=== PATIENT | female | born 1965 | race Caucasian/White ===

== ENCOUNTER 2019-08-28 05:32 | Inpatient (IN) | payer OTHER ==
[2019-08-28] MEDS ORDERED: ALBUTEROL 2.5 MG/3 ML NEB SOL ONE (05:43)
[2019-08-28] MEDS ORDERED: IPRATROPIUM BROM 0.5MG/2.5ML ONE (05:44)
[2019-08-28] MEDS ORDERED: LORazepam 2 MG/ML VIAL ONE (05:55)
[2019-08-28] MEDS ORDERED: Magnesium Sulfate 2gm IVPB 2 G/50 ML BAG IV ONE (05:55)
[2019-08-28 05:59] LABS: Arterial Blood Carboxyhemoglob 0.7 % (0-1.5); Blood Gas Oxyhemoglobin 93.9 % (94-97); Blood O2 Saturation 95.3 % (92-98.5)
[2019-08-28 06:02] LABS: Absolute Lymphocytes (CBC) 1.9 K/uL (0.7-4.9); Basophils % 0.9 % (0-1.3); Hematocrit 45.1 % (36.0-45.0); Lymphocytes % 13.8 % (15.3-44.8); MPV 7.3 fL (7.6-11.3); RBC Red Blood Cell Count 5.15 M/uL (3.86-4.86)
[2019-08-28 06:04] LABS: Protime INR 1.16
[2019-08-28 06:20] LABS: ALT/SGPT 32 U/L (12-78); AST/SGOT 22 U/L (15-37); Albumin 3.5 g/dL (3.4-5.0); Alkaline Phosphatase 99 U/L (45-117); BUN Blood Urea Nitrogen 9 mg/dL (7-18); Bicarbonate 29 mmol/L (21-32); Bilirubin Direct 0.2 mg/dL (0-0.2); Bilirubin Total 0.4 mg/dL (0.2-1.0); Glucose Level 138 mg/dL (74-106); Magnesium 1.5 mg/dL (1.8-2.4); NT PRO-BNP 134 pg/mL (<125); Potassium 3.6 mmol/L (3.5-5.1); Protein, Total 8.4 g/dL (6.4-8.2); Sodium Level 131 mmol/L (136-145); Troponin (Emerg Dept Use Only) < 0.02 ng/mL (0.0-0.045)
--- NOTE | 2019-08-28 06:34 | EDPHYS ---
Physician Documentation [facility] Name: Lianne Agustin Age: 54 yrs Sex: Female : 1965 Arrival Date: 08/28/2019 Time: 05:34 Bed 5 Private MD: ED Physician Juan Woodward HPI: 08/28 05:42 This 54 yrs old Female presents to ER via Unassigned with complaints of kdr Breathing Difficulty. 05:42 The patient has shortness of breath at rest, with light activity. Onset: The kdr symptoms/episode began/occurred gradually, 2 week(s) ago. Duration: The symptoms are continuous, and are steadily getting worse. The patient's shortness of breath is aggravated by coughing, exertion, light activity, is alleviated by nothing. Associated signs and symptoms: The patient has no apparent associated signs or symptoms, Pertinent positives: This patient does not have any pertinent positive signs or symptoms associated with shortness of breath. Severity of symptoms: At their worst the symptoms were incapacitating in the emergency department the symptoms are unchanged. The patient has experienced similar episodes in the past, but today's symptoms are worse, Generally worse and more difficulty breathing. The patient has not recently seen a physician. Historical: - Allergies: 05:35 No Known Allergies; jb4 - Home Meds: 05:35 Home Nebulizer [Active]; Albuterol inhaler [Active]; 2nd inhaler [Active]; jb4 - PMHx: 05:35 COPD; jb4 - PSHx: 05:35 Unable to obtain; jb4 - Immunization history:: Adult Immunizations unknown. - Social history:: Smoking status: unknown. - Ebola Screening: : No symptoms or risks identified at this time. ROS: 05:42 Constitutional: Negative for fever, chills, and weight loss, Eyes: Negative for injury, kdr pain, redness, and discharge, ENT: Negative for injury, pain, and discharge, Neck: Negative for injury, pain, and swelling, Cardiovascular: Negative for chest pain, palpitations, and edema, Abdomen/GI: Negative for abdominal pain, nausea, vomiting, diarrhea, and constipation, Back: Negative for injury and pain, : Negative for injury, bleeding, discharge, and swelling, MS/Extremity: Negative for injury and deformity, Skin: Negative for injury, rash, and discoloration, Neuro: Negative for headache, weakness, numbness, tingling, and seizure activity. Psych: Negative for depression, anxiety, suicide ideation, homicidal ideation, and hallucinations, Allergy/Immunology: Negative for hives, rash, and allergies, Endocrine: Negative for neck swelling, polydipsia, polyuria, polyphagia, and marked weight changes, Hematologic/Lymphatic: Negative for swollen nodes, abnormal bleeding, and unusual bruising. 05:42 Respiratory: Positive for dyspnea on exertion, shortness of breath, at rest. wheezing. Exam: 05:42 Constitutional: This is a well developed, well nourished patient who is awake, alert, kdr and significant distress. Head/Face: Normocephalic, atraumatic. Eyes: Pupils equal round and reactive to light, extra-ocular motions intact. Lids and lashes normal. Conjunctiva and sclera are non-icteric and not injected. Cornea within normal limits. Periorbital areas with no swelling, redness, or edema. Neck: Trachea midline, no thyromegaly or masses palpated, and no cervical lymphadenopathy. Supple, full range of motion without nuchal rigidity, or vertebral point tenderness. No Meningismus. Chest/axilla: Normal chest wall appearance and motion. Nontender with no deformity. No lesions are appreciated. Cardiovascular: Regular rate and rhythm with a normal S1 and S2. No gallops, murmurs, or rubs. Normal PMI, no JVD. No pulse deficits. Abdomen/GI: Soft, non-tender, with normal bowel sounds. No distension or tympany. No guarding or rebound. No evidence of tenderness throughout. Back: No spinal tenderness. No costovertebral tenderness. Full range of motion. Skin: Warm, dry with normal turgor. Normal color with no rashes, no lesions, and no evidence of cellulitis. MS/ Extremity: Pulses equal, no cyanosis. Neurovascular intact. Full, normal range of motion. Neuro: Awake and alert, GCS 15, oriented to person, place, time, and situation. Cranial nerves II-XII grossly intact. Motor strength 5/5 in all extremities. Sensory grossly intact. Cerebellar exam normal. Normal gait. Psych: Awake, alert, with orientation to person, place and time. Behavior, mood, and affect are within normal limits. 05:42 Respiratory: severe repiratory distress is noted, Respirations: labored breathing, that is severe, prolonged exhalation, pursed lip breathing, shallow respirations, that is moderate, tachypnea, that is mild. Vital Signs: 05:35 BP 202 / 113; Pulse 128; Resp 28; Temp 97.5(O); Pulse Ox 89% on R/A; Weight 52.16 kg jb4 (R); Height 5 ft. 4 in. (162.56 cm) (R); Pain 0/10; 06:00 BP 164 / 101; Pulse 126; Resp 22; Pulse Ox 97% on BiPAP; jb4 06:38 BP 148 / 103; Pulse 124; Resp 22; Pulse Ox 95% on BiPAP; jb4 07:00 BP 131 / 85; Pulse 117; Resp 22; Pulse Ox 97% on BiPAP; sv 08:28 BP 111 / 73; Pulse 108; Resp 19; Pulse Ox 96% on 40% BiPAP; tw2 05:35 Body Mass Index 19.74 (52.16 kg, 162.56 cm) jb4 08:28 16/8, rate 18 tw2 MDM: 05:42 Data reviewed: vital signs, nurses notes, lab test result(s), radiologic studies. kdr Counseling: I had a detailed discussion with the patient and/or guardian regarding: the historical points, exam findings, and any diagnostic results supporting the discharge/admit diagnosis, lab results, radiology results. 06:34 Patient medically screened. kdr 08/28 05:42 Order name: Basic Metabolic Panel; Complete Time: 06:44 kdr 08/28 05:42 Order name: CBC with Diff; Complete Time: 06:44 kdr 08/28 05:42 Order name: LFT's; Complete Time: 06:44 kdr 08/28 05:42 Order name: Magnesium; Complete Time: 06:44 kdr 08/28 05:42 Order name: NT PRO-BNP; Complete Time: 06:44 kdr 08/28 05:42 Order name: PT-INR; Complete Time: 06:44 kdr 08/28 05:42 Order name: Troponin (emerg Dept Use Only); Complete Time: 06:44 kdr 08/28 05:42 Order name: ABG kdr 08/28 06:41 Order name: Procalcitonin kdr 08/28 06:41 Order name: Lactate kdr 08/28 06:42 Order name: Blood Culture Adult (2) kdr 08/28 06:45 Order name: ABG Arterial Blood Gas EDMS 08/28 10:46 Order name: Urine Dipstick--Ancillary (enter results) ms 08/28 10:46 Order name: Urine --Ancillary (enter results) ms 08/28 05:42 Order name: BIPAP: With continuous neb kdr 08/28 05:42 Order name: XRAY Chest (1 view) kdr 08/28 05:42 Order name: EKG; Complete Time: 05:43 kdr 08/28 05:42 Order name: Cardiac monitoring; Complete Time: 06:00 kdr 08/28 05:42 Order name: EKG - Nurse/Tech; Complete Time: 06:00 kdr 08/28 05:42 Order name: IV Saline Lock; Complete Time: 06:00 kdr 08/28 05:42 Order name: Labs collected and sent; Complete Time: 06:00 kdr 08/28 11:03 Order name: Lactate EDMS 08/28 11:21 Order name: ABG Arterial Blood Gas EDMS 08/28 11:34 Order name: Urine --Ancillary EDMS 08/28 11:34 Order name: Urine Dipstick-Ancillary EDMS 08/28 05:42 Order name: O2 Per Protocol; Complete Time: 06:00 kdr 08/28 05:42 Order name: O2 Sat Monitoring; Complete Time: 06:00 kdr Administered Medications: 05:44 Drug: Albuterol - atroVENT (3:1) (2.5 mg - 0.5 mg) 3 ml Route: Nebulizer; jb4 06:25 Follow up: Response: No adverse reaction; Wheezing diminished jb4 05:57 Drug: Ativan 0.5 mg Route: IVP; Site: right wrist; jb4 06:24 Follow up: Response: No adverse reaction; Marked relief of symptoms jb4 05:59 Drug: Magnesium Sulfate 2 grams Route: IVPB; Infused Over: 2 hrs; Site: right wrist; jb4 08:00 Follow up: Response: No adverse reaction; IV Status: Completed infusion tw2 07:25 Drug: Rocephin - (cefTRIAXone) 1 grams {Note: IVP available only.} Route: IVPB; Infused tw2 Over: 5 mins; Site: right forearm; 07:30 Follow up: Response: No adverse reaction; IV Status: Completed infusion tw2 07:34 Drug: Zofran 4 mg Route: IVP; Site: right forearm; tw2 12:34 Follow up: Response: No adverse reaction tw2 Disposition: 08/28/19 06:34 Hospitalization ordered by Petey Clark for Inpatient Admission. Preliminary diagnosis is COPD Exacerbation and Right base pneumonia vs atelactasis. - Bed requested for Telemetry/MedSurg (Inpatient). - Status is Inpatient Admission. tw2 - Condition is Serious. - Problem is an acute exacerbation. - Symptoms have improved. UTI on Admission? No Signatures: Dispatcher [employer] EDMS Adela Jimenez RN RN aa1 Juan Woodward MD MD kdr Villarreal, Maria ms Smirch, Shelby, RN RN ss Leila Watts RN RN tw2 Teto Ogden RN RN jb4 Corrections: (The following items were deleted from the chart) 08:25 06:34 Hospitalization Ordered by Petey Clark for Inpatient Admission. Preliminary ss diagnosis is COPD Exacerbation and Right base pneumonia vs atelactasis. Bed requested for Telemetry/MedSurg (Inpatient). Status is Inpatient Admission. Condition is Serious. Problem is an acute exacerbation. Symptoms have improved. UTI on Admission? No. kdr 12:44 08:25 08/28/2019 06:34 Hospitalization Ordered by Petey Clark for Inpatient ms Admission. Preliminary diagnosis is COPD Exacerbation and Right base pneumonia vs atelactasis. Bed requested for [facility] ER HOLD. Status is Inpatient Admission. Condition is Serious. Problem is an acute exacerbation. Symptoms have improved. UTI on Admission? No. ss 13:32 12:44 08/28/2019 06:34 Hospitalization Ordered by Petey Clark for Inpatient tw2 Admission. Preliminary diagnosis is COPD Exacerbation and Right base pneumonia vs atelactasis. Bed requested for Telemetry/MedSurg (Inpatient). Status is Inpatient Admission. Condition is Serious. Problem is an acute exacerbation. Symptoms have improved. UTI on Admission? No. ms
--- NOTE | 2019-08-28 06:34 | ER ---
Nurse's Notes [facility] Name: Lianne Agustin Age: 54 yrs Sex: Female : 1965 Arrival Date: 08/28/2019 Time: 05:34 Bed 5 Private MD: Diagnosis: COPD Exacerbation and Right base pneumonia vs atelactasis Presentation: 08/28 05:35 Presenting complaint: EMS states: PT has had shortness of breath for the past 2 weeks. jb4 tonight her nebulizer treatments and inhalers are not helping. She has audible wheezes and labored breathing. heart rate of 120, b/p 180/100. She was given 125 mg of Solu-Medrol. and Duoneb 1:1 of Albuterol and Atrovent. 05:35 Transition of care: patient was not received from another setting of care. Onset of jb4 symptoms was August 14, 2019. Risk Assessment: Do you want to hurt yourself or someone else? Patient reports no desire to harm self or others. Initial Sepsis Screen: Does the patient meet any 2 criteria? RR > 20 per min. HR > 90 bpm. Yes Does the patient have a suspected source of infection? No. Patient's initial sepsis screen is negative. Care prior to arrival: Medication(s) given: Albuterol Neb x 1, Atrovent Neb x 1, 125 mg Solu-Medrol IV initiated. 22 GA, in the right forearm, Med neb given. Oxygen administered. via a nebulizer mask. 05:35 Method Of Arrival: EMS: [facility] 05:35 Acuity: ASPEN 2 jb4 Triage Assessment: 05:35 General: Appears distressed. Respiratory: Reports shortness of breath at rest air jb4 hunger labored breathing Onset: The symptoms/episode began/occurred gradually, the patient has severe shortness of breath. Historical: - Allergies: 05:35 No Known Allergies; jb4 - Home Meds: 05:35 Home Nebulizer [Active]; Albuterol inhaler [Active]; 2nd inhaler [Active]; jb4 - PMHx: 05:35 COPD; jb4 - PSHx: 05:35 Unable to obtain; jb4 - Immunization history:: Adult Immunizations unknown. - Social history:: Smoking status: unknown. - Ebola Screening: : No symptoms or risks identified at this time. Screenin:35 Abuse screen: Denies threats or abuse. Nutritional screening: No deficits noted. jb4 Tuberculosis screening: No symptoms or risk factors identified. Fall Risk Secondary diagnosis (15 points) IV access (20 points). Gait- Weak (10 pts.). Total Clarke Fall Scale indicates High Risk Score (45 or more points). Fall prevention measures have been instituted. Side Rails Up X 2 Placed Close to Nursing Station Frequent Obs/Assessments Occuring As available patient and family educated on Fall Prevention Program and Strategies. Assessment: 05:35 General: Appears distressed, uncomfortable, ill, Behavior is cooperative, anxious, jb4 restless. Pain: Denies pain. Neuro: Level of Consciousness is awake, alert, obeys commands, Oriented to person, place, time, situation. Cardiovascular: Patient's skin is warm and dry. Rhythm is sinus tachycardia. Respiratory: Airway is patent Respiratory effort is even, labored, using tripod position, Respiratory pattern is symmetrical, tachypnea Breath sounds with wheezes bilaterally. GI: No signs and/or symptoms were reported involving the gastrointestinal system. : No signs and/or symptoms were reported regarding the genitourinary system. EENT: No signs and/or symptoms were reported regarding the EENT system. Derm: Skin is intact, Skin is pink, warm \T\ dry. Musculoskeletal: Circulation, motion, and sensation intact. Range of motion: intact in all extremities. 06:00 Reassessment: Pt's respirations remain labored. Pt verbalized feeling less anxious and jb4 starting to feel better. Is currently on bi-pap. Pt is no longer in the tripod position. Is tolerating bi-pap. Pt remains sinus tach. 06:38 Reassessment: No changes from previously documented assessment. Patient and/or family jb4 updated on plan of care and expected duration. Pain level reassessed. 08:37 Reassessment: Left voicemail for Dr Kiser regarding admission. sv 08:43 Reassessment: Dr Kiser called back and asked if we could get pt downgraded to a floor sv bed, he stated that he would be coming down here to assess the pt before making that decision. Vital Signs: 05:35 BP 202 / 113; Pulse 128; Resp 28; Temp 97.5(O); Pulse Ox 89% on R/A; Weight 52.16 kg jb4 (R); Height 5 ft. 4 in. (162.56 cm) (R); Pain 0/10; 06:00 BP 164 / 101; Pulse 126; Resp 22; Pulse Ox 97% on BiPAP; jb4 06:38 BP 148 / 103; Pulse 124; Resp 22; Pulse Ox 95% on BiPAP; jb4 07:00 BP 131 / 85; Pulse 117; Resp 22; Pulse Ox 97% on BiPAP; sv 08:28 BP 111 / 73; Pulse 108; Resp 19; Pulse Ox 96% on 40% BiPAP; tw2 05:35 Body Mass Index 19.74 (52.16 kg, 162.56 cm) jb4 08:28 16/8, rate 18 tw2 ED Course: 05:34 Patient arrived in ED. ds1 05:35 Arm band placed on right wrist. jb4 05:35 Patient has correct armband on for positive identification. Placed in gown. Bed in low jb4 position. Call light in reach. Side rails up X2. pvc monitor on. Pulse ox on. NIBP on. 05:40 Initial lab(s) drawn, by me, sent to lab. Maintain EMS IV. Dressing intact. Good blood jb4 return noted. Site clean \T\ dry. Gauge \T\ site: 22g right wrist.. 05:41 Juan Woodward MD is Attending Physician. kdr 05:43 Teto Ogden, RN is Primary Nurse. jb4 06:05 Triage completed. jb4 06:10 XRAY Chest (1 view) In Process Unspecified. EDMS 06:31 Petye Clark is Hospitalizing Provider. kdr 07:05 Primary Nurse role handed off by Teto Ogden, RN tw2 07:05 Leila Watts, RN is Primary Nurse. tw2 08:30 No provider procedures requiring assistance completed. Patient admitted, IV remains in tw2 place. 12:50 Awaiting: unable to give report at this time, no answer. tw2 Administered Medications: 05:44 Drug: Albuterol - atroVENT (3:1) (2.5 mg - 0.5 mg) 3 ml Route: Nebulizer; jb4 06:25 Follow up: Response: No adverse reaction; Wheezing diminished jb4 05:57 Drug: Ativan 0.5 mg Route: IVP; Site: right wrist; jb4 06:24 Follow up: Response: No adverse reaction; Marked relief of symptoms jb4 05:59 Drug: Magnesium Sulfate 2 grams Route: IVPB; Infused Over: 2 hrs; Site: right wrist; jb4 08:00 Follow up: Response: No adverse reaction; IV Status: Completed infusion tw2 07:25 Drug: Rocephin - (cefTRIAXone) 1 grams {Note: IVP available only.} Route: IVPB; Infused tw2 Over: 5 mins; Site: right forearm; 07:30 Follow up: Response: No adverse reaction; IV Status: Completed infusion tw2 07:34 Drug: Zofran 4 mg Route: IVP; Site: right forearm; tw2 12:34 Follow up: Response: No adverse reaction tw2 Intake: 02:00 IV: 1000ml; Total: 1000ml. jb4 Outcome: 06:34 Decision to Hospitalize by Provider. kdr 11:02 Admitted to ER Hold. Please see [facility] for further documentation. tw2 11:02 Condition: stable 11:02 Instructed on the need for admit. 13:32 Patient left the ED. tw2 Signatures: Dispatcher [employer] EDMS Rhiannon Andrea RN RN sv Juan Woodward MD MD kdr Lisa Hagen ds1 Leila Watts RN RN tw2 Teto Ogden RN RN jb4 Corrections: (The following items were deleted from the chart) 08:29 08:28 BP 111 / 73; Pulse 108bpm; Resp 19bpm; Pulse Ox 96% BiPAP; sv tw2 08:32 05:40 Maintain EMS IV. Dressing intact. Good blood return noted. Site clean \T\ dry. tw2 Gauge \T\ site: 22g left wrist.. jb4
[2019-08-28 06:45] LABS: Arterial Blood Carboxyhemoglob 0.7 % (0-1.5); Blood Gas Oxyhemoglobin 93.3 % (94-97); Blood O2 Saturation 94.8 % (92-98.5)
--- NOTE | 2019-08-28 06:59 | P.HP ---
Certification for Inpatient Patient admitted to: Inpatient With expected LOS: >2 Midnights Practitioner: I am a practitioner with admitting privileges, knowledge of patient current condition, hospital course, and medical plan of care. Services: Services provided to patient in accordance with Admission requirements found in Title 42 Section 412.3 of the Code of Federal Regulations Patient History Date of Service: 08/28/19 Reason for admission: Shortness of breath History of Present Illness: 54 Year old woman with a history of COPD presented to the emergency department with a complaint of progressive shortness of breath of 2 weeks duration. She reports cough productive of whitish sputum. Patient denied any chest pain. She also denied any fever. She was hypoxic in the emergency department. She was placed on oxygen and given bronchodilators with some improvement. Arterial blood gas revealed acidosis and moderate CO2 retention. Patient was then placed on BiPAP therapy in the ED. Chest x-ray demonstrates subtle opacities in the right lower lobe suggestive of pneumonia. She has leukocytosis and tachycardic and meet criteria for sepsis. Patient is admitted for further management. - Past Medical/Surgical History Diabetic: No -: COPD - Family History Father -: Heart disease - Social History Smoking Status: Former smoker Alcohol use: Yes CD- Drugs: No Review of Systems Other: General: No fever, no malaise, no unintentional weight loss. Eyes: No eye discharge, CVS: No chest pain, no palpitation, no lightheadedness. GI: No abdominal pain, no nausea no vomit, no constipation, no diarrhea. Genitourinary: No dysuria, no urinary frequency, no incontinence, no hematuria. Musculoskeletal: No joint pains, or joint swelling, no gait instability. Neurology: No headache, no asymmetric, weakness, no problem with swallowing. Except as documented, all other systems reviewed and negative. Physical Examination - Physical Exam General: Alert, Oriented x3, Mild distress HEENT: Mucous membr. moist/pink, Sclerae nonicteric Neck: Supple, JVD not distended Respiratory: Diminished (Diffuse diminished breath sounds), Expiratory wheezes ( Mild scattered wheezes) Cardiovascular: No edema, Normal S1 S2, Other (Tachycardia) Gastrointestinal: Normal bowel sounds, Soft and benign, Non-distended, No tenderness Musculoskeletal: No swelling, No erythema Integumentary: No rashes, No erythema Neurological: Normal speech, Normal strength at 5/5 x4 extr - Studies Laboratory Data (last 24 hrs) 08/28/19 05:45: PT 13.6 H, INR 1.16 08/28/19 05:45: WBC 13.8 H, Hgb 15.4 H, Hct 45.1 H, Plt Count 320 08/28/19 05:45: Sodium 131 L, Potassium 3.6, BUN 9, Creatinine 0.58, Glucose 138 H, Magnesium 1.5 L, Total Bilirubin 0.4, AST 22, ALT 32, Alkaline Phosphatase 99 Assessment and Plan - Problems (Diagnosis) (1) Acute respiratory failure with hypoxia and hypercapnia Current Visit: Yes Status: Acute (2) COPD exacerbation Current Visit: Yes Status: Acute (3) Sepsis Current Visit: Yes Status: Acute (4) Hyponatremia Current Visit: Yes Status: Acute - Plan Admit patient to the ICU Schedule DuoNeb IV Solu-Medrol IV Rocephin and Zithromax IV hydration with normal saline. Normal saline also to correct hyponatremia Sepsis protocol. Follow blood cultures. Check urinalysis. BiPAP therapy Consult to respiratory Consult to pulmonary. - Advance Directives Does patient have a Living Will: No Does patient have a Durable POA for Healthcare: No
[2019-08-28] MEDS ORDERED: CEFTRIAXONE/SWI 1gm 1 GM/10 ML SYR ONE (07:07)
[2019-08-28] MEDS ORDERED: ONDANSETRON 4 MG/2 ML VIAL ONE (07:35)
--- NOTE | 2019-08-28 08:04 | RAD REPORT ---
EXAM DESCRIPTION: RAD - Chest Single View - 08/28/2019 6:09 am CLINICAL HISTORY: COPD, dyspnea COMPARISON: None. TECHNIQUE: AP portable chest image was obtained 0600 hours . FINDINGS: Low lung volumes seen. No dense consolidation. There is hazy opacification in the medial r ight lung base partially obscuring the right heart border. Cardiac lead overlies this portion of the chest as well limiting detail. Failure or volume overload are doubtful. No acute left lung field find ing suspected. Heart and vasculature are normal. No measurable pleural effusion and no pneumothorax. No acute bony abnormality seen. No acute aortic findings suspected. IMPRESSION: Hazy right base opacification is probably artifact. However, early right middle lobe pne umonia cannot be excluded.
[2019-08-28] MEDS: ALBUTEROL 2.5 MG/3 ML NEB SOL NEB SCH ×3 (09:04→19:35)
[2019-08-28] MEDS ORDERED: ACETAMINOPHEN 500 MG TAB PO PRN (09:04)
[2019-08-28] MEDS ORDERED: ONDANSETRON 4 MG/2 ML VIAL IV PRN (09:04)
[2019-08-28] MEDS ORDERED: CEFTRIAXONE 1 GM/NS 50 ML 1 GM/50 ML BAG IV SCH (09:04)
[2019-08-28] MEDS: IPRATROPIUM BROM 0.5MG/2.5ML NEB SCH ×3 (09:04→19:35)
[2019-08-28 09:16] VITALS: BMI 19.7
[2019-08-28] MEDS: AZITHROMYCIN IV 500 MG in NA CHLORIDE 0.9% 250 ML IVPB SCH (10:40)
[2019-08-28] MEDS: NA CHLORIDE 0.9% 1,000 ML IV SCH ×2 (10:47→22:03)
[2019-08-28] MEDS: ENOXAPARIN 40 MG/0.4 ML SQ SCH (10:54)
[2019-08-28 11:19] LABS: Arterial Blood Carboxyhemoglob 0.4 % (0-1.5); Blood Gas Oxyhemoglobin 95.5 % (94-97); Blood O2 Saturation 96.8 % (92-98.5)
[2019-08-28 11:34] LABS: Urine Blood TRACE (NEG); Urine Glucose NEGATIVE (NEG); Urine Protein 3+ (NEG); Urine pH 7.5 (5.0-7.0)
[2019-08-28] MEDS: METHYLPREDNISOLONE 40 MG INJ IV SCH ×3 (12:00→23:51)
[2019-08-28] MEDS ORDERED: POTASSIUM CL SA 10 MEQ TAB PO ONE (13:37)
[2019-08-28] MEDS ORDERED: INFLUENZA VACCINE (for 3y+) 0.5 ML DOSE IMVAC ONE (14:00)
[2019-08-28] MEDS ORDERED: MAGNESIUM SULFATE 1 gm IVPB 1 GM/100 ML BAG IV ONE (16:20)
--- NOTE | 2019-08-28 17:29 | PN ---
Date of Progress Note: 08/28/2019 Subjective: Patient is seen and examined. Chart reviewed and case discussed with RN. Patient still in some mild distress, respiratory distress. Medications: List reviewed. Physical Examination: Vital Signs: Heart rate is 110, blood pressure 141/85, respirations 19, O2 of 98% on BiPAP 40% FiO2. General: Awake, alert, oriented x3, some mild distress, appears older than stated age, ill-appearin g female, frail, cachectic. CV: S1, S2. Sinus tachycardia. Peripheral pulses present. Respiratory: Diminished breath sounds. Patient is tachypneic with use of accessory muscles. Gastroi ntestinal: Abdomen is soft, nontender, nondistended. Positive bowel sounds. Extremities: No clubbing, cyanosis, or edema. Neurologic: Nonfocal. Laboratory Data: Lactate 1.1. Procalcitonin 0.05. ABG shows pH 7.32, pCO2 of 53.1, pO2 of 96, bica rb is 26. Assessment: A 54-year-old female with: 1.Acute respiratory failure with hypoxia, currently requiring BiPAP. We will continue on BiPAP. AB G shows improvement. Hypercapnia is improving. Pulmonology has been consulted. 2.Acute chronic obstructive pulmonary disease exacerbation. We will continue with nebulizer treatme nts and steroids. Currently on supplemental oxygen. 3.Sepsis. Patient is tachycardic, elevated white blood cell count. Source of infection is pneumoni a. 4.Right middle lobe pneumonia, possible gram-negative or aspiration type pneumonia. We will continu e with IV antibiotics and follow up on cultures. 5.Hyponatremia. We will replace and monitor. 6.Hypomagnesemia. We will replace and monitor. Plan: We will downgrade to [facility] floor. Patient is no longer that acidotic. Her hypercapnia is i mproved. It should be stable for the floor. SA/MODL Voice ID: [id number] Report ID: [id number]
[2019-08-28] MEDS ORDERED: ALPRAZOLAM 0.25 MG TABLET PO ONE (18:25)
[2019-08-28] MEDS ORDERED: MAGNES/ALUMIN/SIMET 30ML UCUP PO PRN (23:11)
[2019-08-28] MEDS: ZOLPIDEM TARTRATE 5 MG TABLET PO PRN (23:51)
[2019-08-28] MEDS: GUAIFENESIN/CODEINE 5ML UCUP PO PRN (23:51)
[2019-08-29] MEDS: ALBUTEROL 2.5 MG/3 ML NEB SOL NEB SCH ×4 (01:35→20:20)
[2019-08-29] MEDS: IPRATROPIUM BROM 0.5MG/2.5ML NEB SCH ×4 (01:35→20:20)
[2019-08-29] MEDS: METHYLPREDNISOLONE 40 MG INJ IV SCH (05:12)
[2019-08-29] MEDS: PANTOPRAZOLE 40MG TABLET PO SCH (05:12)
[2019-08-29 06:18] LABS: Absolute Lymphocytes (CBC) 0.8 K/uL (0.7-4.9); Basophils % 0.1 % (0-1.3); Hematocrit 37.8 % (36.0-45.0); Lymphocytes % 5.8 % (15.3-44.8); MPV 7.5 fL (7.6-11.3); RBC Red Blood Cell Count 4.33 M/uL (3.86-4.86)
[2019-08-29 06:33] LABS: ALT/SGPT 23 U/L (12-78); AST/SGOT 11 U/L (15-37); Albumin 2.8 g/dL (3.4-5.0); Alkaline Phosphatase 79 U/L (45-117); BUN Blood Urea Nitrogen 10 mg/dL (7-18); Bicarbonate 26 mmol/L (21-32); Bilirubin Total 0.3 mg/dL (0.2-1.0); Glucose Level 137 mg/dL (74-106); Magnesium 2.1 mg/dL (1.8-2.4); Phosphorus 1.8 mg/dL (2.5-4.9); Potassium 3.7 mmol/L (3.5-5.1); Protein, Total 6.9 g/dL (6.4-8.2); Sodium Level 135 mmol/L (136-145); Thyroid Stimulating Hormone 0.328 uIU/mL (0.360-3.740)
--- NOTE | 2019-08-29 06:36 | EKG ---
Test Date: 2019-08-28 Test Time: 05:54:58 Face Burler: CHANI MEASUREMENT RESULTS: Intervals: Rate: 125 ND: 138 QRSD: 104 QT: 314 QTc: 453 [place]: P: 93 ND: 138 QRS: 76 T: 70 INTERPRETIVE STATEMENTS: Sinus tachycardia Right atrial enlargement Right bundle branch block Abnormal ECG No previous ECG available for comparison Electronically Signed On 08-29-19 06:35:56 [employer] by Austin Jerome
[2019-08-29] MEDS: NA CHLORIDE 0.9% 1,000 ML IV SCH (06:50)
[2019-08-29] MEDS: ENOXAPARIN 40 MG/0.4 ML SQ SCH (08:15)
[2019-08-29] MEDS: POTASS/SODIUM PHOSPHATE 1 PKT POWD.PACK PO SCH ×3 (08:16→11:44)
[2019-08-29] MEDS: AZITHROMYCIN IV 500 MG in NA CHLORIDE 0.9% 250 ML IVPB SCH (08:16)
[2019-08-29 08:39] LABS: Blood Morphology Comment NOT SEEN (NOT SEEN); Platelet Estimate ADEQ
[2019-08-29] MEDS ORDERED: POTASSIUM CL SA 10 MEQ TAB PO ONE (09:00)
[2019-08-29] MEDS ORDERED: CEFTRIAXONE/SWI 1gm 1 GM/10 ML SYR IVP SCH (09:00)
[2019-08-29] MEDS: LORAZEPAM 0.5 MG TABLET PO PRN ×2 (09:51→18:37)
--- NOTE | 2019-08-29 10:47 | P.CNS ---
Date of Consult: 08/29/19 Reason for Consult: COPD exacerbation Chief Complaint: Shortness of breath History of Present Illness: Patient is 54 years of age heavy 2 pack-a-day smoker admitted with shortness of breath cough congestion dysphonia for several weeks does not have a regular physician she has been taking her mom's nebulizers and albuterol at home and last year regular physician does not take any medication as at this productive cough feeling better no other complaints Allergies No Known Allergies Allergy (Verified 08/28/19 08:21) Home Medications: NK [No Home Meds] 08/28/19 - Past Medical/Surgical History Diabetic: No -: COPD -: Back - Family History Father Medical History: Heart disease - Social History Smoking Status: Unknown if ever smoked Alcohol use: No CD- Drugs: No Place of Residence: Home Review of Systems General: Weakness Respiratory: Cough, Shortness of Breath Physical Examination Temp Pulse Resp BP Pulse Ox 97.3 F 90 20 149/80 H 97 08/29/19 08:00 08/29/19 08:00 08/29/19 08:00 08/29/19 08:00 08/29/19 08:00 General: Alert, In no apparent distress Neck: Supple Respiratory: Expiratory wheezes Cardiovascular: No edema, Regular rate/rhythm, Normal S1 S2 Gastrointestinal: Normal bowel sounds, Soft and benign - Problems (1) COPD exacerbation Current Visit: Yes Status: Acute Plan: Patient is 54 years of age admitted with COPD exacerbation patient was hypoxic hypercapnic on admission white count mildly elevated may have a right middle lobe infiltrate I have repeated a PA lateral chest x-ray change to p.o. levofloxacin and prednisone Dc IV antibiotics concerned about her dysphonia blood cultures negative sputum cultures pending check room air pulse ox patient has been console not to smoke
[2019-08-29] MEDS: levoFLOXacin 500 MG TAB PO SCH (11:44)
--- NOTE | 2019-08-29 16:27 | PN ---
Date of Progress Note: 08/29/2019 Subjective: Patient is seen and examined. Chart reviewed and case discussed with RN and Dr. Lisa. Patient is doing significantly better. Daughter at the bedside. Treatment plan explained, all questions answered. Medications: List reviewed. Physical Examination: Vital Signs: Temperature 97.3, heart rate 90, blood pressure 149/80, respirations 20, O2 97% on 2.5 L via nasal cannula. GENERAL: Awake, alert, oriented x3, ill-appearing, frail, cachectic female; appears older than stated age. CVS: S1, S2. Regular rate and rhythm. Peripheral pulses present. Respiratory: Diminished breath sounds, wheezing significantly improved. Gastrointestinal: Abdomen is soft, nontender, nondistended. Positive bowel sounds. Extremities: No clubbing, cyanosis, or edema. Neurologic: Nonfocal. Laboratory Data: Sodium 135, potassium 3.7, chloride 106, CO2 of 26, BUN 10, creatinine 0.53, glucose 137, calcium 8.5, phosphorus 1.8, magnesium 2.1, albumin 2.8, TSH 0.328. WBC 13.9, H and H of 12.8 and 37.8, platelets 272, neutrophils 90%. Blood cultures, no growth to date. Sputum culture pending. Assessment: A 54-year-old female with: 1. Acute respiratory failure with hypoxia and hypercapnia, now off BiPAP. Still using BiPAP at night, significantly improved, now on nasal cannula. Appreciate pulmonology input secondary to chronic obstructive pulmonary disease. 2. Acute on chronic obstructive pulmonary disease exacerbation. Continue with nebulizer treatments and steroids. Switch to prednisone. Currently, still on 2.5 L. We will check room air saturations. 3. Sepsis secondary to pneumonia, improving. 4. Right middle lobe pneumonia, possible gram-negative or aspiration type. We will continue with IV antibiotics. Follow up on culture results. Negative to date. Sputum culture still pending. 5. Hyponatremia, corrected. 6. Hypomagnesemia, corrected. We will continue to monitor. 7. Hypophosphatemia. We will replace and monitor. 8. Dysphonia, ENT evaluation. No ENT available till tomorrow. Patient has a strong history of smoking 2 packs per day for a long time, has risk for laryngeal cancer. 9. Nicotine dependence with cigarette smoking. Patient is smoking 2 packs per day since she was very young. Has been counseled. 10. Deep venous thrombosis prophylaxis, on Lovenox. Plan: Wean off O2. Switch to oral steroids. Social Work consult. Patient will need a PCP set up as an outpatient. JACKSON Voice ID: [id number] Report ID: [id number] MTDD
--- NOTE | 2019-08-29 19:11 | RAD REPORT ---
EXAM DESCRIPTION: RAD - Chest Pa And Lat (2 Views) - 08/29/2019 7:04 pm CLINICAL HISTORY: COPD exacerbation abnormal chest x-ray Chest pain. COMPARISON: Chest Single View dated 08/28/2019 FINDINGS: Linear opacities are present in the right lung base which may represent subsegmental atele ctasis or a small infiltrate. The lungs are emphysematous. The heart is normal in size. No displaced fractures.
[2019-08-29] MEDS ORDERED: MELATONIN 5 MG TABLET PO SCH (21:00)
[2019-08-29] MEDS: predniSONE 20 MG TAB PO SCH (21:11)
[2019-08-29] MEDS: ZOLPIDEM TARTRATE 5 MG TABLET PO PRN (21:11)
[2019-08-30] MEDS: ALBUTEROL 2.5 MG/3 ML NEB SOL NEB SCH ×2 (01:45→07:30)
[2019-08-30] MEDS: IPRATROPIUM BROM 0.5MG/2.5ML NEB SCH ×2 (01:45→07:30)
[2019-08-30] MEDS: LORAZEPAM 0.5 MG TABLET PO PRN (03:26)
[2019-08-30 04:26] VITALS: TEMP 97.7
[2019-08-30 04:36] LABS: BUN Blood Urea Nitrogen 11 mg/dL (7-18); Bicarbonate 22 mmol/L (21-32); Glucose Level 150 mg/dL (74-106); Potassium 4.1 mmol/L (3.5-5.1); Sodium Level 134 mmol/L (136-145)
--- NOTE | 2019-08-30 05:31 | EKG ---
Test Date: 2019-08-28 Test Time: 06:12:10 Silhouette Artist: CHANI MEASUREMENT RESULTS: Intervals: Rate: 127 ND: 138 QRSD: 112 QT: 318 QTc: 462 Irons: P: 83 ND: 138 QRS: 92 T: 61 INTERPRETIVE STATEMENTS: Sinus tachycardia Right atrial enlargement Pulmonary disease pattern Right bundle branch block Abnormal ECG Compared to ECG 08/28/2019 05:54:58 No significant changes Electronically Signed On 08-30-19 05:30:51 PAY CLERK by Austin Jerome
[2019-08-30] MEDS: PANTOPRAZOLE 40MG TABLET PO SCH (06:02)
[2019-08-30] MEDS: ENOXAPARIN 40 MG/0.4 ML SQ SCH (07:48)
[2019-08-30] MEDS: predniSONE 20 MG TAB PO SCH (07:48)
[2019-08-30] MEDS: levoFLOXacin 500 MG TAB PO SCH (07:48)
[2019-08-30] MEDS: GUAIFENESIN/CODEINE 5ML UCUP PO PRN (08:54)
[2019-08-30 10:37] VITALS: BP 148/85
[2019-08-30 12:00] VITALS: O2SAT 95
--- NOTE | 2019-08-31 01:29 | DS ---
Date of Discharge: 08/30/2019 Consultants: 1.Dr. Lisa with Pulmonology. 2.Dr. Mathew with ENT. Admitting Diagnoses: 1.Acute respiratory failure with hypoxia and hypercapnia. 2.Acute chronic obstructive pulmonary disease exacerbation. 3.Sepsis. 4.Pneumonia. 5.Hyponatremia. Discharge Diagnoses: 1.Acute respiratory failure with hypoxia and hypercapnia, resolved. 2.Acute chronic obstructive pulmonary disease exacerbation, improved. 3.Sepsis secondary to pneumonia, on Levaquin. 4.Right middle lobe pneumonia, improving. 5.Hyponatremia, corrected. 6.Hypomagnesemia, corrected. 7.Hypophosphatemia, replaced. 8.Dysphonia, outpatient ENT evaluation per Dr. Mathew. 9.Nicotine dependence with cigarette smoking, continuous, uncomplicated, counseled. Hospital Course: Patient is a 54-year-old female with past medical history of COPD, who has been usi ng her mother's nebulizer treatments, who continues to smoke, has been smoking 2 packs per d ay since she was a teenager, comes in with difficulty breathing. She was found to have respiratory f ailure. She was acidotic and her pCO2 was 70. The patient was placed on BiPAP. Subsequent ABGs did show improvement. She was also found to have a pneumonia on the right lobe in the base and was star gracia on antibiotics. Cultures were obtained, which did not show any growth to date including sputum c ultures and blood cultures. The patient's symptoms improved, she was able to be weaned off BiPAP. S he was still requiring supplemental oxygen, however, was slowly weaned off. Dr. Lisa with Pulmon ology was consulted and he agreed with the treatment. Patient was then switched over to oral antibio tics and steroids. Her condition was significantly improved. She was weaned off O2. She was able t o ambulate without difficulty. Concerning symptom was her dysphonia due to her risk factors includin g cigarette smoking for at least 45-noyn-nrbm history. She is at risk for laryngeal cancer. This dy sphonia has been ongoing for the past year. Symptoms never really go away, however, did improve slig htly and then come back. Patient did report some pink frothy sputum during the hospitalization. Dr. Mathew, ENT on-call was consulted. She recommended outpatient followup with laryngoscopy in [facility] on Thursday 8:00 a.m. The patient was made aware of the appointment. Face sheet was faxed over to Dr. Mathew's office. She recommended outpatient followup as she is unable to have the scope don e inpatient. Patient was then cleared for discharge. She was sent home in a stable condition. Activity: As tolerated. Medications: As per medication reconciliation list. Followup: Follow up with primary care physician in 2-3 days. Follow up with military pilot, Dr. Kristine lares in 2 weeks. Follow up with Dr. Mathew, ENT on , 09/02/2019 8:00 a.m. Return to ER for worsening condition. Diet: Regular. Activity: As tolerated. Physical Examination: General: Awake, alert, and oriented x3. No acute distress. CV: S1, S2. Respiratory: Slightly diminished breath sounds at the bases. No wheezing or stridor. Gastrointestinal: Abdomen is soft, nontender, nondistended. Positive bowel sounds. Extremities: No clubbing, cyanosis, or edema. Neurologic: Nonfocal. Total time spent discharging the patient was 38 minutes. SA/MODL Voice ID: [id number] Report ID: [id number]
--- NOTE | 2019-09-02 21:41 | P.CNS ---
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 She has approximately 1 year history of dysphonia. We discussed inpatient vs outpatient consultation. Given the pending discharge and better visualization of laryngoscopy in the out- patient clinic with ability to record the exam and magnify the images, I feel outpatient evaluation is best for this patient. She can call the office and will be scheduled for Sep 02 at 8AM for evaluation.
== END 2019-08-30 12:24 | disposition home or self-care (01) | DRG 871 ==
LOC: ER 05:32 → ERHOLD 07:07 → 4TH 13:02
PROVIDERS: ADMIT Internal Medicine; ATTEND Internal Medicine
DX: A41.9 Sepsis, unspecified organism (principal); J96.02 Acute respiratory failure with hypercapnia; J18.9 Pneumonia, unspecified organism; J96.01 Acute respiratory failure with hypoxia; J44.0 Chronic obstructive pulmonary disease with (acute) lower respiratory infection; J44.1 Chronic obstructive pulmonary disease with (acute) exacerbation; E87.1 Hypo-osmolality and hyponatremia; E83.42 Hypomagnesemia; E83.39 Other disorders of phosphorus metabolism; R49.0 Dysphonia; F17.210 Nicotine dependence, cigarettes, uncomplicated
CPT/HCPCS: 36415; 71045; 71046; 80048; 80053; 80076; 81003; 81025; 82805; 83605; 83735; 83880; 84100; 84145; 84443; 84484; 85025; 85610; 87040; 87070; 87205; 93005; 94640; 94660; 94760; 96365; 96366; 96375; 99285; J0456; J0696; J1650; J2405; J2920; J3475; J7030; J7512

== ENCOUNTER 2019-09-02 09:15 | Inpatient (IN) | payer OTHER, SELFPAY ==
[2019-09-02] MEDS ORDERED: LEVALBUTEROL 1.25 MG/3 ML NEB ONE ×2 (09:18→11:32)
[2019-09-02] MEDS ORDERED: NA CHLORIDE 0.9% 0 ML ONE (09:19)
[2019-09-02] MEDS ORDERED: MAGNESIUM SULFATE 1 gm IVPB 1 GM/100 ML BAG IV ONE (09:19)
[2019-09-02 09:35] LABS: Arterial Blood Carboxyhemoglob 0.2 % (0-1.5); Blood Gas Oxyhemoglobin 97.5 % (94-97); Blood O2 Saturation 98.6 % (92-98.5)
[2019-09-02 09:39] LABS: Absolute Lymphocytes (CBC) 5.7 K/uL (0.7-4.9); Basophils % 0.3 % (0-1.3); Hematocrit 48.2 % (36.0-45.0); Lymphocytes % 23.5 % (15.3-44.8); RBC Red Blood Cell Count 5.48 M/uL (3.86-4.86)
[2019-09-02 10:01] LABS: BUN Blood Urea Nitrogen 16 mg/dL (7-18); Bicarbonate 25 mmol/L (21-32); Glucose Level 169 mg/dL (74-106); NT PRO-BNP 137 pg/mL (<125); Potassium 3.9 mmol/L (3.5-5.1); Sodium Level 128 mmol/L (136-145); Troponin (Emerg Dept Use Only) < 0.02 ng/mL (0.0-0.045)
[2019-09-02] MEDS ORDERED: NA CHLORIDE 0.9% 1,000 ML ONE (10:30)
--- NOTE | 2019-09-02 10:37 | EDPHYS ---
Physician Documentation [facility] Name: Lianne Agustin Age: 54 yrs Sex: Female : 1965 Arrival Date: 09/02/2019 Time: 09:12 Bed 3 Private MD: ED Physician Chan Mccarty HPI: 09/02 09:14 This 54 yrs old Female presents to ER via EMS with complaints of Breathing rn Difficulty. 09:14 The patient has shortness of breath at rest, with light activity. Onset: The rn symptoms/episode began/occurred at an unknown time. The patient's shortness of breath is aggravated by light activity, talking. Severity of symptoms: At their worst the symptoms were severe in the emergency department the symptoms have improved. The patient has experienced similar episodes in the past. Per EMS, daughter states recently admitted for pneumonia, discharged, called 911 for difficulty breathing, no feve,r no pain, + severe respiratory distress, placed on cpap and given steroids and neb, with some improvement, has never been intubated. . Historical: - Allergies: 09:29 No Known Allergies; sv - PMHx: 09:29 COPD; sv - PSHx: 09:48 Back; sv - Immunization history:: Adult Immunizations up to date. - Ebola Screening: : No symptoms or risks identified at this time. - Social history:: Smoking status: unknown. - Hospitalizations: : The patient was recently seen at [facility]. - History obtained from: EMS. - Unable to obtain history due to: patient distress. ROS: 09:14 Constitutional: Negative for fever, chills, and weight loss, Eyes: Negative for injury, rn pain, redness, and discharge, Cardiovascular: Negative for chest pain, palpitations, and edema, Respiratory: + sob Abdomen/GI: Negative for abdominal pain, nausea, vomiting, diarrhea, and constipation, MS/Extremity: Negative for injury and deformity, Skin: Negative for injury, rash, and discoloration, Neuro: + weakness Exam: 09:14 Constitutional: Thin female, moderate respiratory distress, on CPAP. Head/Face: rn Normocephalic, atraumatic. ENT: dry MM, no stridor, no swelling Cardiovascular: Tachycardic, regular Respiratory: + moderate tachypnea, speaking 1-2 word sentences, + poor inspiratory air flow Abdomen/GI: soft, non-tender MS/ Extremity: Pulses equal, no cyanosis. Neurovascular intact. Full, normal range of motion. Equal circumference. Neuro: Awake and alert, GCS 15, oriented to person, place, time, and situation. Cranial nerves II-XII grossly intact. Motor strength 5/5 in all extremities. Sensory grossly intact. Cerebellar exam normal. 09:50 ECG was reviewed by the Attending Physician. rn Vital Signs: 09:14 BP 162 / 133; Pulse 124; Resp 40; Temp 98; Pulse Ox 91% on BiPAP; Pain 0/10; sv 09:49 BP 169 / 97; Pulse 117; Resp 19; Pulse Ox 96% on 70% BiPAP; sv 09:59 Weight 52 kg; Height 5 ft. 4 in. (162.56 cm); sv 10:49 BP 142 / 95; Pulse 110; Resp 20; Pulse Ox 100% on 70% BiPAP; sv 11:26 Pulse 118; Resp 26; Pulse Ox 94% on 70% BiPAP; sv 11:50 BP 191 / 117; Pulse 121; Resp 21 A; Pulse Ox 93% on BiPAP; ss 11:57 BP 193 / 96; Pulse 122; Resp 20; Pulse Ox 98% on BVM; ss 12:03 BP 136 / 83; Pulse 113; Pulse Ox 98% on ETT vent; ss 12:34 BP 60 / 46; Pulse 111; Resp 22; Pulse Ox 95% on ETT vent; sv 12:45 BP 72 / 48; Pulse 105; Resp 22; Pulse Ox 95% on ETT vent; sv 12:50 BP 87 / 55; Pulse 104; Resp 22; Pulse Ox 95% on ETT vent; sv 12:55 BP 94 / 56; Pulse 102; Resp 22; Pulse Ox 96% ; sv 13:00 BP 103 / 59; Pulse 101; Resp 22; Pulse Ox 96% on ETT vent; sv 13:05 BP 109 / 65; Pulse 117; Resp 28; Pulse Ox 94% on ETT vent; sv 13:10 BP 101 / 58; Pulse 101; Resp 22; Pulse Ox 93% on ETT vent; sv 13:15 BP 118 / 92; Pulse 97; Resp 22; Pulse Ox 96% on ETT vent; sv 09:59 Body Mass Index 19.68 (52.00 kg, 162.56 cm) sv 09:49 14/7 sv Procedures: 12:02 Intubation: Ventilated with 100% NRB prior to procedure. O2 saturation prior to uppers edge burnisher was 93 %. Intubated orally using # 4 Turdi blade with 6.0 mm ETT. was successful on first attempt. Cricoid pressure applied during procedure. Tube secured at right side of mouth measured 23 cm at teeth. Placement verified by CXR, CO2 detector with (+) color change, auscultating bilateral breath sounds, O2 saturation after procedure was 98 %. Patient tolerated well, Pt initially was going to be intubated with 7.5ETT, upon visualization vocal cords edematous and very narrow, switched to 6.5 ETT, still seemed too large, did not force through, switched to 6.0 ETT and went in without force. Given upper airway sounds and last week ENT consulted for upper airway scope, concern is either inflammatory or malignant larynx changes. ENT will be consulted during hospitalization. . MDM: 09:12 Patient medically screened. rn 10:01 ED course: WBC elevated but on steroids, afebrile, and blood cultures and sputum rn cultures were negative from recent admission.. 10:34 Differential diagnosis: Chronic Obstructive Pulmonary Disease pneumonia, Pneumothorax rn pulmonary edema, Pulmonary Embolism reactive airway disease, Sepsis. Data reviewed: vital signs, nurses notes, lab test result(s), EKG, radiologic studies, plain films, and as a result, I will admit patient. Counseling: I had a detailed discussion with the patient and/or guardian regarding: the historical points, exam findings, and any diagnostic results supporting the discharge/admit diagnosis, lab results, radiology results, the need for further work-up and treatment in the hospital. Response to treatment: the patient's symptoms have markedly improved after treatment, and as a result, I will admit patient. Admission orders: after a detailed discussion of the patient's condition and case, the admit orders are written by me. ED course: Pt improved, making jokes, + hypercapnia, improving on bipap, will admit to Dr. Whitaker for further care. CXR no change form prior, neg procal, afebrile. elevated WBC maybe 2/2 steroids. Will hold abx for now until CT chest, especially since has been on levaquin for this week.. 11:37 ED course: Pt states feels worse, not sure if anxiety vs worsening respiratory status, rn ordered abg and new nebs. Will reassess, low threshold for intubation, family notified and agree with plan.. 12:07 ED course: Pt intubated for respiratory failure and worsening hypercapnia. Amp of rn bicarb given prior to intubation to counter apnea of intubation, another given following intubation given need for ETT change 2 times, and to temporize while hyperventilating.. 13:11 ED course: ABG improving, now 7.313, pCo2 46.8. rn 09/02 09:13 Order name: ABG; Complete Time: 10:01 09/02 09:13 Order name: Blood Culture Adult (2) rn 09/02 09:13 Order name: BMP; Complete Time: 10:08 09/02 09:13 Order name: CBC with Diff rn 09/02 09:13 Order name: NT PRO-BNP; Complete Time: 10:08 09/02 09:13 Order name: Troponin (emerg Dept Use Only); Complete Time: 10:08 09/02 09:13 Order name: Procalcitonin; Complete Time: 10:08 09/02 09:18 Order name: Lactate; Complete Time: 10:01 09/02 09:52 Order name: CBC Smear Scan [facility] 09/02 11:30 Order name: ABG [facility] 09/02 12:47 Order name: ABG 09/02 12:51 Order name: ABG Arterial Blood Gas [facility] 09/02 13:19 Order name: Urine Dipstick--Ancillary (enter results) [facility] 09/02 13:50 Order name: Urine Dipstick-Ancillary [facility] 09/02 09:13 Order name: BIPAP 09/02 09:13 Order name: XRAY CXR (1 view); Complete Time: 10:59 09/02 10:33 Order name: CT Chest For PE Angio rn 09/02 11:59 Order name: Chest Single View XRAY [facility] 09/02 12:18 Order name: RAD; Complete Time: 12:36 [facility] 09/02 14:07 Order name: Blood Culture [facility] 09/02 09:13 Order name: EKG; Complete Time: 09:17 rn 09/02 09:13 Order name: Cardiac monitoring; Complete Time: 09:28 rn 09/02 09:13 Order name: EKG - Nurse/Tech; Complete Time: rn 09/02 09:13 Order name: IV Saline Lock; Complete Time: rn 09/02 09:13 Order name: Labs collected and sent; Complete Time: rn 09/02 09:13 Order name: O2 Per Protocol; Complete Time: rn 09/02 09:13 Order name: O2 Sat Monitoring; Complete Time: rn EC:50 Rate is 122 beats/min. Rhythm is regular. Right axis deviation noted. QRS is negative rn in leads I, aVF. SC interval is normal. QRS interval is normal. QT interval is normal. T waves are Inverted in leads V1, V2. No ST changes noted. Clinical impression: Sinus tachycardia. Interpreted by me. Reviewed by me. Administered Medications: Drug: Xopenex (3) 1.25 mg Route: Inhalation; sv 09:28 Drug: Magnesium Sulfate 1 grams Route: IVPB; Infused Over: 1 hrs; Site: right sv antecubital; 10:30 Follow up: Response: No adverse reaction; IV Status: Completed infusion; IV Intake: sv 100ml 09:28 Drug: NS 0.9% 1000 ml Route: IV; Rate: 1000 ml; Site: right antecubital; sv 10:30 Follow up: Response: No adverse reaction; IV Status: Completed infusion; IV Intake: sv 1000ml 10:34 Drug: NS 0.9% 1000 ml Route: IV; Rate: 1000 ml; Site: right antecubital; sv 11:30 Follow up: Response: No adverse reaction; IV Status: Completed infusion; IV Intake: sv 1000ml 11:33 Drug: Xopenex 1.25 mg Route: Inhalation; sv 11:33 Drug: AtroVENT Aerosol 0.5 mg Route: Inhalation; sv 11:51 Drug: Sodium Bicarbonate 1 amp Route: IVP; Site: right forearm; ss 12:00 Follow up: Response: No adverse reaction sv 11:53 Drug: Etomidate 20 mg {Note: Administered by Rhiannon Andrea RN.} Route: IVP; Site: ss right forearm; 12:00 Follow up: Response: No adverse reaction sv 11:53 Drug: Succinylcholine 100 mg Route: IVP; Site: right forearm; ss 12:00 Follow up: Response: No adverse reaction sv 12:00 Drug: Sodium Bicarbonate 1 amp {Note: Administered by RN. Rhiannon} Route: IVP; Site: ss right forearm; 12:30 Follow up: Response: No adverse reaction sv 12:12 Drug: Versed 4 mg {Note: Administered by RN. Rhiannon} Route: IVP; Site: right ss forearm; 12:30 Follow up: Response: No adverse reaction sv 12:18 Drug: Versed 2 mg {Note: administered by Rhiannon Andrea RN.} Route: IVP; Site: right ss forearm; 12:30 Follow up: Response: No adverse reaction sv 12:22 Drug: Dilaudid 1 mg {Note: administered by Rhiannon Andrea RN.} Route: IVP; Site: ss right forearm; 12:30 Follow up: Response: No adverse reaction; RASS: Alert and Calm (0) sv 12:42 Drug: Dopamine drip 5 mcg/kg/min - (DOPamine 400 mg, D5W 250 ml) Route: IV; Rate: sv calculated rate; Site: right forearm; 13:19 Follow up: Rate change 7.5 calculated rate; Medication moved to the right femoral sv central line 14:03 Follow up: Response: No adverse reaction; IV Status: Infusion continued upon admission sv 12:42 Drug: NS 0.9% 1000 ml Route: IV; Rate: 1000 ml; Site: right femoral; sv 14:25 Follow up: Response: No adverse reaction; IV Status: Completed infusion; IV Intake: sv 1000ml 13:21 Drug: D5-1/2 NS with KCl 20 mEq/L 1000 ml Route: IV; Rate: 125 ml/hr; Site: right sv femoral; 14:03 Follow up: Response: No adverse reaction; IV Status: Infusion continued upon admission sv 13:21 Drug: Propofol 5 mcg/kg/min Route: IV; Rate: calculated rate; Site: right femoral; sv 14:03 Follow up: Response: No adverse reaction; IV Status: Infusion continued upon admission sv Disposition: 10:34 Critical Care:. rn Disposition: 09/02/19 10:36 Hospitalization ordered by Tal Whitaker for Inpatient Admission. Preliminary diagnosis are Chronic obstructive pulmonary disease with (acute) exacerbation, Acute respiratory failure with hypercapnia, Hypoxemia. - Bed requested for Intensive Care Unit. - Status is Inpatient Admission. em1 - Condition is Stable. - Problem is new. - Symptoms have improved. UTI on Admission? No Critical care time excluding procedures: 10:34 Critical care time: Bedside Care: 25 minutes, Family Intervention: 5 minutes. Total rn time: 30 minutes Signatures: Dispatcher [employer] Mery Otero RN RN kl Verde, Stephanie, RN RN sv Chan Mccarty MD MD rn Martinez, Juan Manuel em1 Coby Gomez RN RN Kolton Varela, FULL STACK PYTHON DEVELOPER-C FULL STACK PYTHON DEVELOPER-Cla1 Corrections: (The following items were deleted from the chart) 09:48 09:29 PSHx: Unable to obtain; sv sv 11:12 10:36 Hospitalization Ordered by Tal Whitaker DO for Inpatient Admission. Preliminary rn diagnosis is Chronic obstructive pulmonary disease with (acute) exacerbation; Acute respiratory failure with hypercapnia; Hypoxemia. Bed requested for Telemetry/MedSurg (Inpatient). Status is Inpatient Admission. Condition is Stable. Problem is new. Symptoms have improved. UTI on Admission? No. rn 11:41 11:12 09/02/2019 10:36 Hospitalization Ordered by aTl Whitaker DO for Inpatient kl Admission. Preliminary diagnosis is Chronic obstructive pulmonary disease with (acute) exacerbation; Acute respiratory failure with hypercapnia; Hypoxemia. Bed requested for Intensive Care Unit. Status is Inpatient Admission. Condition is Stable. Problem is new. Symptoms have improved. UTI on Admission? No. rn 14:40 11:41 09/02/2019 10:36 Hospitalization Ordered by TalAnderson CORNEJO for Inpatient em1 Admission. Preliminary diagnosis is Chronic obstructive pulmonary disease with (acute) exacerbation; Acute respiratory failure with hypercapnia; Hypoxemia. Bed requested for Intensive Care Unit. Status is Inpatient Admission. Condition is Stable. Problem is new. Symptoms have improved. UTI on Admission? No. kl
--- NOTE | 2019-09-02 10:37 | ER ---
Nurse's Notes [facility] Name: Lianne Agustin Age: 54 yrs Sex: Female : 1965 Arrival Date: 09/02/2019 Time: 09:12 Bed 3 Private MD: Diagnosis: Chronic obstructive pulmonary disease with (acute) exacerbation;Acute respiratory failure with hypercapnia;Hypoxemia Presentation: 09/02 09:08 Presenting complaint: EMS states: dyspnea started last night, on EMS arrival pt was sv tachypneic, wide eyed 78% RA, given an A\T\A tx and placed on CPAP, O2 sat up to 96%. BP 200/114 HR-120s. Transition of care: patient was not received from another setting of care. Onset of symptoms was September 01, 2019. Care prior to arrival: Medication(s) given: Solu medrol 125 mg IVP. 09:08 Method Of Arrival: EMS: [facility] sv 09:08 Acuity: [facility] 1 sv 09:22 Initial Sepsis Screen: Does the patient meet any 2 criteria? RR > 20 per min. HR > 90 sv bpm. Yes Does the patient have a suspected source of infection? Yes: If YES to both, name of provider notified: Chan Mccarty MD 09:34 Risk Assessment: Do you want to hurt yourself or someone else? Patient reports no sv desire to harm self or others. Triage Assessment: 09:08 General: Appears distressed, slender, Behavior is cooperative, flat. Pain: Denies pain. sv Neuro: Level of Consciousness is awake, alert, obeys commands, Moves all extremities. Respiratory: Reports shortness of breath at rest on exertion labored breathing Airway is patent Respiratory effort is even, labored, Respiratory pattern is tachypnea Onset: The symptoms/episode began/occurred yesterday, the patient has severe shortness of breath. Derm: Skin is normal. Historical: - Allergies: 09:29 No Known Allergies; sv - PMHx: 09:29 COPD; sv - PSHx: 09:48 Back; sv - Immunization history:: Adult Immunizations up to date. - Ebola Screening: : No symptoms or risks identified at this time. - Social history:: Smoking status: unknown. - Hospitalizations: : The patient was recently seen at [facility]. - History obtained from: EMS. - Unable to obtain history due to: patient distress. Screenin:31 Abuse screen: Denies threats or abuse. Denies injuries from another. Nutritional sv screening: No deficits noted. Tuberculosis screening: No symptoms or risk factors identified. Fall Risk No fall in past 12 months (0 pts). No secondary diagnosis (0 pts). IV access (20 points). Ambulatory Aid- None/Bed Rest/Nurse Assist (0 pts). Gait- Normal/Bed Rest/Wheelchair (0 pts) Mental Status- Oriented to own ability (0 pts). Total Clarke Fall Scale indicates No Risk (0-24 pts). Assessment: 09:22 Reassessment: Code Sepsis called. sv 09:22 Cardiovascular: Rhythm is sinus tachycardia. sv 09:48 Reassessment: Patient appears in no apparent distress at this time. Patient and/or sv family updated on plan of care and expected duration. Pain level reassessed. Patient is alert, oriented x 3, equal unlabored respirations, skin warm/dry/pink. Pt is more alert at this time. Daughter is at the bedside. 10:55 Reassessment: Livia from RT at bedside to see how pt does off of BIPAP to go to CT. sv Informed Dr Mccarty pt is not doing as well without the BIPAP. He came to the bedside with Dr Whitaker and stated ok to hold off on the CT. 11:33 Reassessment: Dr Mccarty at the bedside. Pt reports that she feels worse and not able to sv breathe. 11:34 Reassessment: RT paged to obtain repeat ABG. sv 11:38 Reassessment: Livia RT at the bedside. sv 11:45 Reassessment: Patient appears in no apparent distress at this time. Dr Mccarty at the bedside informing family that pt's ABG was worse than the first one and pt would need intubation. Family ok with the POC. Patient states symptoms have not improved. 11:55 Reassessment: Pt becoming more unresponsive and not answering questions. Dr Mccarty sv remains at the bedside. 12:12 Reassessment: Pt becoming agitated and restless. Informed Dr Mccarty, medication order sv received. 12:40 Reassessment: Informed Dr Mccarty of the vitals, Dopamine ordered. sv 13:21 Reassessment: Patient appears in no apparent distress at this time. Pt is intubated and sv sedated. Patient states symptoms have improved. 14:30 Reassessment: Patient appears in no apparent distress at this time. Pt remains sv intubated and sedated. Vital Signs: 09:14 BP 162 / 133; Pulse 124; Resp 40; Temp 98; Pulse Ox 91% on BiPAP; Pain 0/10; sv 09:49 BP 169 / 97; Pulse 117; Resp 19; Pulse Ox 96% on 70% BiPAP; sv 09:59 Weight 52 kg; Height 5 ft. 4 in. (162.56 cm); sv 10:49 BP 142 / 95; Pulse 110; Resp 20; Pulse Ox 100% on 70% BiPAP; sv 11:26 Pulse 118; Resp 26; Pulse Ox 94% on 70% BiPAP; sv 11:50 BP 191 / 117; Pulse 121; Resp 21 A; Pulse Ox 93% on BiPAP; ss 11:57 BP 193 / 96; Pulse 122; Resp 20; Pulse Ox 98% on BVM; ss 12:03 BP 136 / 83; Pulse 113; Pulse Ox 98% on ETT vent; ss 12:34 BP 60 / 46; Pulse 111; Resp 22; Pulse Ox 95% on ETT vent; sv 12:45 BP 72 / 48; Pulse 105; Resp 22; Pulse Ox 95% on ETT vent; sv 12:50 BP 87 / 55; Pulse 104; Resp 22; Pulse Ox 95% on ETT vent; sv 12:55 BP 94 / 56; Pulse 102; Resp 22; Pulse Ox 96% ; sv 13:00 BP 103 / 59; Pulse 101; Resp 22; Pulse Ox 96% on ETT vent; sv 13:05 BP 109 / 65; Pulse 117; Resp 28; Pulse Ox 94% on ETT vent; sv 13:10 BP 101 / 58; Pulse 101; Resp 22; Pulse Ox 93% on ETT vent; sv 13:15 BP 118 / 92; Pulse 97; Resp 22; Pulse Ox 96% on ETT vent; sv 09:59 Body Mass Index 19.68 (52.00 kg, 162.56 cm) sv 09:49 14/7 sv ED Course: 09:12 Patient arrived in ED. sv 09:12 Chan Mccarty MD is Attending Physician. rn 09:12 Rhiannon Andrea RN is Primary Nurse. sv 09:14 Triage completed. sv 09:15 Initial lab(s) drawn, by ED staff, sent to lab. First set of blood cultures drawn by ED sg staff. 09:15 nps on. Pulse ox on. NIBP on. Head of bed elevated. sv 09:15 Arm band placed on Patient placed in an exam room, on a stretcher, on oxygen, on sv lime vat tender, on pulse oximetry. 09:25 Patient has correct armband on for positive identification. Bed in low position. Call sv light in reach. Side rails up X2. 09:29 BIPAP Sent. sv 09:30 Second set of blood cultures drawn by me. sg 09:32 ABG drawn. by RT staff, on oxygen. sv 09:32 EKG done, by histotechnician. reviewed by Chan Mccarty MD. at1 09:51 Notified ED physician of a critical lab result(s). WBC-24.3. sv 10:06 Awaiting for x-ray. sv 10:13 X-ray(s) taken. sv 10:23 Inserted saline lock: 22 gauge in left antecubital area, using aseptic technique. sv ,using aseptic technique. diffusics Blood collected. Flushed left antecubital with 5 ml normal saline. 10:35 Tal Whitaker DO is Hospitalizing Provider. rn 10:36 XRAY CXR (1 view) In Process Unspecified. EDMS 11:17 Awaiting bed assignment. sv 11:41 ABG drawn. by RT staff, on oxygen. sv 11:56 Assisted provider with intubation using 6.0 mm ETT via oral route. ET tube secured at ss 23cm at the lips. Intubated by Chan Mccarty MD Placement verified by CO2 detector w/ + color change, auscultating bilateral breath sounds, Patient tolerated sedated. 12:03 OG tube 14 Fr inserted by Rhiannon andrea RN. Verified placement by auscultation and ss gastric contents returned. 12:35 Howell cath inserted, using sterile technique, 16 Fr., by ED staff, balloon inflated, to sv gravity drainage, urine specimen collected. returned clear yellow urine. Patient tolerated well. 13:10 Assisted provider with central line placement. Set up central line tray. Triple lumen sv line placed in right femoral. Line placed by [place] SWIFT Placement verified by blood return, Dressed with Tegaderm, Patient tolerated well. Before procedure, did Practitioner(s) obtain informed consent? No. Patient \T\ family education about procedure, CLABSI prevention and S/S of infection? No. Time-out/Briefing performed prior to start of procedure? Yes. Was handwashing/sanitizing done immediately prior to procedure? Yes. Was patient positioned to in a way to prevent air embolism? Yes. Was procedure site sterilized? Yes, with chlorhexidine. Was the site allowed to dry? Yes. Was local anesthetic and/or sedation utilized? Yes. During the procedure, did the Practitioner(s) maintain a sterile field? Yes. Were unused ports clamped during insertion? Yes. Was a 2nd qualified MD obtained after 3 unsuccessful insertion attempts? Yes. Was blood aspirated from each lumen? Yes. After the procedure, did the Practitioner(s) clean the site and apply a sterile dressing? Yes. 13:19 ABG Sent. sv 13:57 Urine Dipstick--Ancillary (enter results) Sent. sv 14:40 Patient admitted, IV remains in place. intact. sv Restraints: 12:15 Non-Violent Restraint: Order obtained. Initiated on September 02, 2019 at 12:15 Unable to sv provide Restraint education. Pt not able to follow commands or understand education at this time.. Actions/Behavior observed: Confused/disoriented, has difficulty remembering/follow instructions, has impaired decision making, repeated attempts to get up from bed/chair w/o assistance, has decreased level of consciousness, unable to follow instructions, repeated attempts to remove/tamper lines/tubes/IV med devices \T\ wound dressing, repeated attempts to remove artifical airway/mechanical resp support, Less restrictive alternatives attempted: decrease environmental stimuli, 1:1 patient care, placed near Nurse station, reoriented to location, medications evaluated, medicated for pain/anxiety, performed diversional activities, lines/tubes covered, eliminated unnecessary lines/tubes, verbal de-escalation performed, Alternative interventions: Ineffective. Clinical justification for use: airway protection, line protection, patient safety, Mental status: agitated/restless, Cognition: Unable to assess. poor judgement, poor safety awareness, impulsive, poor attention/concentration, unable to follow commands, short term memory loss, Circulation: Within defined parameters (based on Cardiovascular assessment) Skin integrity: Within defined parameters (based on Integumentary assessment) Signs of injury related to restraint: No injuries noted. Range of Motion (ROM): performed. Hydration/Food: patient asleep. Elimination/Hygiene: with urinary catheter, Restraint status: Side rails up x 4 Started. Soft wrist restraint (Right) Started. Soft wrist restraint (Left) Started. Criteria to discontinue Restraint not met. Restraint continued. 14:15 Non-Violent Restraint: Order obtained. Unable to provide Restraint education. Pt sv intubated and sedated. Actions/Behavior observed: Confused/disoriented, has difficulty remembering/follow instructions, has impaired decision making, has decreased level of consciousness, unable to follow instructions, repeated attempts to remove/tamper lines/tubes/IV med devices \T\ wound dressing, repeated attempts to remove artifical airway/mechanical resp support, Less restrictive alternatives attempted: Alternative interventions: Ineffective. Clinical justification for use: airway protection, line protection, patient safety, Mental status: patient asleep, Cognition: Unable to assess. poor judgement, poor safety awareness, impulsive, poor attention/concentration, unable to follow commands, short term memory loss, Circulation: Within defined parameters (based on Cardiovascular assessment) Skin integrity: Within defined parameters (based on Integumentary assessment) Signs of injury related to restraint: No injuries noted. Range of Motion (ROM): patient asleep. Hydration/Food: patient asleep. Elimination/Hygiene: with urinary catheter, Restraint status: Side rails up x 4 Continued. Soft wrist restraint (Right) Continued. Soft wrist restraint (Left) Continued. Criteria to discontinue Restraint not met. Restraint continued. Administered Medications: 09:28 Drug: Xopenex (3) 1.25 mg Route: Inhalation; sv 09:28 Drug: Magnesium Sulfate 1 grams Route: IVPB; Infused Over: 1 hrs; Site: right sv antecubital; 10:30 Follow up: Response: No adverse reaction; IV Status: Completed infusion; IV Intake: sv 100ml 09:28 Drug: NS 0.9% 1000 ml Route: IV; Rate: 1000 ml; Site: right antecubital; sv 10:30 Follow up: Response: No adverse reaction; IV Status: Completed infusion; IV Intake: sv 1000ml 10:34 Drug: NS 0.9% 1000 ml Route: IV; Rate: 1000 ml; Site: right antecubital; sv 11:30 Follow up: Response: No adverse reaction; IV Status: Completed infusion; IV Intake: sv 1000ml 11:33 Drug: Xopenex 1.25 mg Route: Inhalation; sv 11:33 Drug: AtroVENT Aerosol 0.5 mg Route: Inhalation; sv 11:51 Drug: Sodium Bicarbonate 1 amp Route: IVP; Site: right forearm; ss 12:00 Follow up: Response: No adverse reaction sv 11:53 Drug: Etomidate 20 mg {Note: Administered by Rhiannon Andrae RN.} Route: IVP; Site: ss right forearm; 12:00 Follow up: Response: No adverse reaction sv 11:53 Drug: Succinylcholine 100 mg Route: IVP; Site: right forearm; ss 12:00 Follow up: Response: No adverse reaction sv 12:00 Drug: Sodium Bicarbonate 1 amp {Note: Administered by RN. Rhiannon} Route: IVP; Site: ss right forearm; 12:30 Follow up: Response: No adverse reaction sv 12:12 Drug: Versed 4 mg {Note: Administered by RN. Rhiannon} Route: IVP; Site: right ss forearm; 12:30 Follow up: Response: No adverse reaction sv 12:18 Drug: Versed 2 mg {Note: administered by Rhiannon Andrea RN.} Route: IVP; Site: right ss forearm; 12:30 Follow up: Response: No adverse reaction sv 12:22 Drug: Dilaudid 1 mg {Note: administered by Rhiannon Andrea RN.} Route: IVP; Site: ss right forearm; 12:30 Follow up: Response: No adverse reaction; RASS: Alert and Calm (0) sv 12:42 Drug: Dopamine drip 5 mcg/kg/min - (DOPamine 400 mg, D5W 250 ml) Route: IV; Rate: sv calculated rate; Site: right forearm; 13:19 Follow up: Rate change 7.5 calculated rate; Medication moved to the right femoral sv central line 14:03 Follow up: Response: No adverse reaction; IV Status: Infusion continued upon admission sv 12:42 Drug: NS 0.9% 1000 ml Route: IV; Rate: 1000 ml; Site: right femoral; sv 14:25 Follow up: Response: No adverse reaction; IV Status: Completed infusion; IV Intake: sv 1000ml 13:21 Drug: D5-1/2 NS with KCl 20 mEq/L 1000 ml Route: IV; Rate: 125 ml/hr; Site: right sv femoral; 14:03 Follow up: Response: No adverse reaction; IV Status: Infusion continued upon admission sv 13:21 Drug: Propofol 5 mcg/kg/min Route: IV; Rate: calculated rate; Site: right femoral; sv 14:03 Follow up: Response: No adverse reaction; IV Status: Infusion continued upon admission sv Intake: 10:30 IV: 1000ml; Total: 1000ml. sv 10:30 IV: 100ml; Total: 1100ml. sv 11:30 IV: 1000ml; Total: 2100ml. sv 14:25 IV: 1000ml; Total: 3100ml. sv Outcome: 10:36 Decision to Hospitalize by Provider. rn 14:25 Admitted to ICU accompanied by nurse, accompanied by tech, via stretcher, room 7, with sv oxygen, on monitor, with chart, Report called to Es DONNELLY 14:25 Condition: stable 14:25 Instructed on the need for admit. 14:40 Patient left the ED. em1 Signatures: Dispatcher [employer] EDRhiannon Florez RN RN Juancarlos Franklin RN Chan Son MD MD rn Martinez, Eric em1 Coby Gomez RN RN ss Gonzales, Amanda, ict development manager EKG Tat1 Corrections: (The following items were deleted from the chart) 09:32 09:22 Initial Sepsis Screen: Does the patient meet any 2 criteria? RR > 20 per min. HR sv > 90 bpm. Yes Does the patient have a suspected source of infection? Yes: sv 09:48 09:29 PSHx: Unable to obtain; sv sv 10:05 09:14 BP 162 / 133; Pulse 124bpm; Resp 40bpm; Pulse Ox 91% RA; Pain 0/10; sv sv 10:50 10:49 BP 142 / 95; Pulse 110bpm; Resp 26bpm; Pulse Ox 100% 02 70% BiPAP; sv sv 11:03 11:02 Reassessment: report given to CONY Lopez [facility] 11:34 11:33 Reassessment: Dr Mccarty at the bedside sv sv 13:25 12:45 Howell cath inserted, using sterile technique, 16 Fr., by ED staff, balloon sv inflated, to gravity drainage, urine specimen collected. returned clear yellow urine. Patient tolerated well. sv
--- NOTE | 2019-09-02 10:44 | RAD REPORT ---
EXAM DESCRIPTION: RAD - Chest Single View - 09/02/2019 10:36 am CLINICAL HISTORY: DYSPNEA Chest pain. COMPARISON: Chest Pa And Lat (2 Views) dated 08/29/2019; Chest Single View dated 08/28/2019 FINDINGS: Portable technique limits examination quality. Mild opacities in the right lung base likely represent mild infiltrate/pneumonia. The lungs are other pearce clear. The heart is normal in size. No displaced fractures.
--- NOTE | 2019-09-02 10:58 | EKG ---
Test Date: 2019-09-02 Test Time: 09:14:21 [employer] Brakes: SWAPNA MEASUREMENT RESULTS: Intervals: Rate: 122 TX: 128 QRSD: 102 QT: 314 QTc: 447 [place]: P: 89 TX: 128 QRS: 269 T: 64 INTERPRETIVE STATEMENTS: Sinus tachycardia Right atrial enlargement Right superior axis deviation Pulmonary disease pattern Incomplete right bundle branch block Right ventricular hypertrophy Abnormal ECG Compared to ECG 08/28/2019 06:12:10 Right superior axis now present Incomplete right bundle-branch block now present Right ventricular hypertrophy now present Right bundle-branch block no longer present Electronically Signed On 09-02-19 10:58:04 RESIDENTIAL CARE FACILITY MANAGER by Brendan Arnold
[2019-09-02] MEDS ORDERED: IPRATROPIUM BROM 0.5MG/2.5ML ONE (11:32)
[2019-09-02] MEDS ORDERED: RSI MEDICATION KIT IV ONE (11:32)
[2019-09-02] MEDS ORDERED: MIDAZOLAM HCL 2 MG/2 ML INJ ONE (11:32)
[2019-09-02 11:42] LABS: Blood Gas Oxyhemoglobin 94.4 % (94-97); Blood O2 Saturation 95.2 % (92-98.5)
--- NOTE | 2019-09-02 12:17 | RAD REPORT ---
EXAM DESCRIPTION: RAD - Chest Single View - 09/02/2019 12:11 pm CLINICAL HISTORY: POST ETT Chest pain. COMPARISON: Chest Single View dated 09/02/2019; Chest Pa And Lat (2 Views) dated 08/29/2019; Chest Sin gle View dated 08/28/2019 FINDINGS: Portable technique limits examination quality. ET tube tip is above the jane. Enteric tube descends into the stomach. Mild right basilar infiltrat e again seen. The heart is upper limit normal in size.
[2019-09-02] MEDS ORDERED: HYDROMORPHONE HCL 1 MG/ML INJ ONE (12:24)
[2019-09-02] MEDS ORDERED: NA CHLORIDE 0.9% 2,000 ML ONE (12:40)
[2019-09-02] MEDS ORDERED: DOPAMINE/D5W 400 MG/250 ML BAG IV ONE (12:40)
[2019-09-02 12:50] LABS: Arterial Blood Carboxyhemoglob 0.5 % (0-1.5); Blood Gas Oxyhemoglobin 94.6 % (94-97)
[2019-09-02] MEDS ORDERED: propofoL 1,000 MG/100 ML VIAL IV ONE (13:12)
[2019-09-02] MEDS ORDERED: D5.45NS W/KCL 20MEQ 1,000 ML IV ONE (13:14)
[2019-09-02 13:27] LABS: Blood Morphology Comment NOT SEEN (NOT SEEN); Platelet Estimate INCR; Urine White Blood Cell Casts OK
--- NOTE | 2019-09-02 13:29 | P.HP ---
Certification for Inpatient Patient admitted to: Inpatient With expected LOS: >2 Midnights Patient will require the following post-hospital care: Other (Long-term acute care facility) Practitioner: I am a practitioner with admitting privileges, knowledge of patient current condition, hospital course, and medical plan of care. Services: Services provided to patient in accordance with Admission requirements found in Title 42 Section 412.3 of the Code of Federal Regulations Patient History Date of Service: 09/02/19 Primary Care Provider: unknown Reason for admission: Shortness of breath History of Present Illness: 54-year-old female presented to the emergency room with increasing shortness of breath. Patient was recently hospitalized for acute respiratory failure related to COPD exacerbation and pneumonia. Patient was also evaluated for possible dysphonia. The patient was discharge with Levaquin. Since that time her shortness of breath has worsened. It appears that she has not been able follow up with any of her physicians. She would had a follow up with ENT today for further evaluation of the dysphonia. Patient was brought in by EMS. Patient required BiPAP. Patient was in acute respiratory failure with hypoxia and hypercapnia. In the ER patient continued with BiPAP. White count elevated at 24.3, hemoglobin 16. Platelet count 579. Lactic acid within normal range. Pro calcitonin with normal range. Sodium 128, potassium 3.9, creatinine 0.56 with a GFR of greater than 90. Glucose 169. Chest x-ray showed right lower lobe pneumonia. Patient was admitted to ICU for further evaluation and treatment. When I saw the patient ER, she appeared in poor shape. Patient was on BiPAP. Recent ABG shows a pH is 7.16 with the CO2 of 71. During the course in the ER patient began to have more trouble breathing. Patient required intubation. They did have some difficulty in intubation due to possible mass to the larnyx. Patient also required increased sedation. This dropped her blood pressure. Patient required vasopressor support. Patient currently stable at this time. Patient currently intubated. Allergies No Known Allergies Allergy (Verified 08/28/19 08:21) Home medications list reviewed: Yes Home Medications: Albuterol Neb [Proventil 0.083% Neb Soln] 2.5 mg NEB [id number] #60 amp 08/30/19 Fluticasone/Salmeterol [Advair 250-50 Diskus] 1 each IH BID #60 disk.w.dev 08/30 Ipratropium Neb [Atrovent*] 0.5 mg NEB [id number] #30 amp 08/30/19 levoFLOXacin [Levaquin*] 500 mg PO DAILY #5 tab 08/30/19 predniSONE [Deltasone] 10 mg PO BID #10 tab 08/30/19 - Past Medical/Surgical History Diabetic: No -: End-stage COPD -: Back Sir Psychosocial/ Personal History: Unknown patient likely lives at home. - Family History Family History: Reviewed- Non-Contributory - Family History Father -: Heart disease - Social History Smoking Status: Unknown if ever smoked Alcohol use: No CD- Drugs: No Caffeine use: No Place of Residence: Home Review of Systems is unable to be obtained Physical Examination - Physical Exam General: Alert, Severe distress, Other (On my initial exam patient was initially on BiPAP. Since that time patient was intubated. Patient intubated at this time. Patient require sedation. Patient on vasopressor support.) HEENT: Atraumatic Neck: Supple Respiratory: Expiratory wheezes, Other (Poor inspiration and expiration.) Cardiovascular: Normal pulses, Regular rate/rhythm Gastrointestinal: Normal bowel sounds, Soft and benign, Non-distended Integumentary: No erythema, No warmth, No cyanosis, Other (Muscle wasting.) Neurological: Normal strength at 5/5 x4 extr Lymphatics: Other (Muscle wasting to the upper lower extremities.) - Studies Laboratory Data (last 24 hrs) 09/02/19 09:15: WBC 24.3 H* D, Hgb 16.2 H D, Hct 48.2 H D, Plt Count 579 H D 09/02/19 09:15: Sodium 128 L, Potassium 3.9, BUN 16, Creatinine 0.56, Glucose 169 H Assessment and Plan - Plan Impression: Acute on chronic respiratory failure with hypoxia and hypercapnia secondary to COPD exacerbation likely with end-stage COPD complicated with right lower lobe pneumonia Hypotension likely from sedation Hyponatremia 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 Patient currently intubated. Patient required increase sedation in the ER. This dropped her blood pressure. Patient now on vasopressor support. Blood, sputum and urine culture obtained. Patient placed on IV cefepime. Will provide DVT prophylaxis- Lovenox. Will obtain CT neck, chest once medically stable. I did contact pulmonology who will evaluate patient. We need to get in contact with family to address code status. IV fluids initiated. Electrolyte protocol in place. Will continue to monitor closely. Await further recommendations from pulmonology. Hypotension likely from sedation: Patient on vasopressor support. Patient currently intubated. Hyponatremia: Continue IV fluids. 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 Patient likely with laryngeal mass. Patient will likely require CT neck to further evaluate. Leukocytosis likely related to above: Continue as above. Discharge Plan: LTAC Plan to discharge in: Greater than 2 days - Advance Directives Does patient have a Living Will: No Does patient have a Durable POA for Healthcare: No - Code Status/Comfort Care Code Status Assessed: No (Code status could not be obtained.) Time Spent Managing Pts Care (In Minutes): 55
[2019-09-02 13:48] LABS: Urine Blood TRACE (NEG); Urine Glucose TRACE (NEG); Urine Protein 1+ (NEG)
[2019-09-02] MEDS ORDERED: ONDANSETRON 4 MG/2 ML VIAL IV PRN (13:57)
[2019-09-02] MEDS: ALBUTEROL 2.5 MG/3 ML NEB SOL NEB SCH ×2 (14:00→19:30)
[2019-09-02] MEDS: IPRATROPIUM BROM 0.5MG/2.5ML NEB SCH ×2 (14:00→19:30)
[2019-09-02] MEDS ORDERED: HALOPERIDOL LACT 5 MG/ML INJ IV PRN (14:18)
[2019-09-02] MEDS ORDERED: MIDAZOLAM HCL 2 MG/2 ML INJ IV PRN (14:18)
[2019-09-02] MEDS: NA CHLORIDE 0.9% 1,000 ML IV SCH (14:54)
[2019-09-02] MEDS ORDERED: NOREPINEPHRINE 4 MG in D5W 250 ML IV PRN (14:58)
[2019-09-02] MEDS: METHYLPREDNISOLONE 125 MG INJ IV SCH ×2 (15:39→16:04)
[2019-09-02] MEDS: ENOXAPARIN 40 MG/0.4 ML SQ SCH (15:40)
[2019-09-02] MEDS: CEFEPIME/SWI 1gm 10 ML IVP SCH ×2 (15:40→21:38)
[2019-09-02 16:35] LABS: Urine Appearance CLEAR; Urine Bilirubin NEGATIVE (NEG); Urine Blood NEGATIVE (NEG); Urine Color YELLOW; Urine Glucose TRACE (NEG); Urine Protein NEGATIVE (NEG); Urine Urobilinogen 0.2 mg/dL (0.2-1.0); Urine pH 7.5 (5.0-7.0)
[2019-09-02 16:38] LABS: Urine Microscopic Reflex NO UMIC
[2019-09-02] MEDS ORDERED: ETOMIDATE 20 MG/10 ML VIAL IV ONE (18:43)
[2019-09-02] MEDS ORDERED: SUCCINYLCHOLINE 20 MG/ML (10 ML) IV ONE (18:43)
[2019-09-02] MEDS: ARFORMOTEROL TARTRATE 15 MCG/2 ML VIAL.NEB NEB SCH (19:30)
[2019-09-02] MEDS: FENTANYL CITR 100 MCG/2 ML IV PRN (19:51)
[2019-09-02] MEDS ORDERED: CEFEPIME 1 GM/VIAL IV SCH (21:00)
[2019-09-02] MEDS: propofoL 1,000 MG/100 ML VIAL IV PRN (22:49)
[2019-09-02] MEDS: LORazepam 2 MG/ML VIAL IV PRN (22:50)
[2019-09-03] MEDS: METHYLPREDNISOLONE 125 MG INJ IV SCH ×3 (00:13→12:00)
[2019-09-03 01:32] LABS: Blood Gas Oxyhemoglobin 95.2 % (94-97); Blood O2 Saturation 97.1 % (92-98.5)
[2019-09-03] MEDS: ALBUTEROL 2.5 MG/3 ML NEB SOL NEB SCH ×4 (02:20→19:55)
[2019-09-03] MEDS: IPRATROPIUM BROM 0.5MG/2.5ML NEB SCH ×4 (02:20→19:55)
[2019-09-03] MEDS: LORazepam 2 MG/ML VIAL IV PRN ×2 (02:39→09:30)
[2019-09-03] MEDS: NA CHLORIDE 0.9% 1,000 ML IV SCH ×2 (03:45→12:51)
[2019-09-03 04:35] LABS: Absolute Lymphocytes (CBC) 0.9 K/uL (0.7-4.9); Basophils % 0.2 % (0-1.3); Hematocrit 37.1 % (36.0-45.0); Lymphocytes % 9.3 % (15.3-44.8); MPV 7.1 fL (7.6-11.3); RBC Red Blood Cell Count 4.27 M/uL (3.86-4.86)
[2019-09-03 05:06] LABS: BUN Blood Urea Nitrogen 13 mg/dL (7-18); Bicarbonate 24 mmol/L (21-32); Glucose Level 138 mg/dL (74-106); Magnesium 1.8 mg/dL (1.8-2.4); Potassium 3.1 mmol/L (3.5-5.1); Sodium Level 136 mmol/L (136-145)
[2019-09-03 05:15] LABS: Blood Morphology Comment NOT SEEN (NOT SEEN); Platelet Estimate ADEQ; Urine White Blood Cell Casts OK
[2019-09-03] MEDS ORDERED: MAGNESIUM SULFATE 1 gm IVPB 1 GM/100 ML BAG IV ONE (06:06)
[2019-09-03] MEDS: KCL 20 MEQ/100 mL IVPB 20 MEQ/100 ML BAG IV SCH ×2 (06:17→10:04)
[2019-09-03 06:22] LABS: Arterial Blood Carboxyhemoglob 0.9 % (0-1.5); Blood Gas Oxyhemoglobin 94.9 % (94-97); Blood O2 Saturation 96.6 % (92-98.5)
[2019-09-03] MEDS ORDERED: PANTOPRAZOLE 40MG TABLET PO SCH (07:30)
[2019-09-03] MEDS: ARFORMOTEROL TARTRATE 15 MCG/2 ML VIAL.NEB NEB SCH ×2 (07:55→19:55)
--- NOTE | 2019-09-03 08:08 | P.PN ---
Subjective Date of Service: 09/03/19 Primary Care Provider: unknown Chief Complaint: Shortness of breath Subjective: Improving (Still intubated and sedated.) Physical Examination - Vital Signs Temperature: 97.2 F Blood Pressure: 101/68 Pulse: 83 Respirations: 19 Pulse Ox (%): 98 - Physical Exam General: Other (intubated and sedated) HEENT: Atraumatic Neck: Supple Respiratory: Clear to auscultation bilaterally Cardiovascular: Normal pulses, Regular rate/rhythm Gastrointestinal: Normal bowel sounds, Soft and benign, Non-distended Musculoskeletal: No erythema, No tenderness, No warmth - Studies Laboratory Data (last 24 hrs) 09/02/19 09:15: WBC 24.3 H* D, Hgb 16.2 H D, Hct 48.2 H D, Plt Count 579 H D 09/02/19 09:15: Sodium 128 L, Potassium 3.9, BUN 16, Creatinine 0.56, Glucose 169 H Medications List Reviewed: Yes Assessment & Plan Discharge Plan: Other (Will need to consider long-term acute care facility versus home pending clinical improvement.) Plan to discharge in: Greater than 2 days Physician Review Additional Text: Impression: Acute on chronic respiratory failure with hypoxia and hypercapnia secondary to COPD exacerbation 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 Still on pressor support. Continue IV fluids and antibiotics. WBC better. Will discuss further with pulmonology. Patient will need CT scan of neck chest to further evaluate. May need to wean off ventilator slowly as patient had difficult intubation due to possible mass to the larynx. Will need to discuss code status. Will continue to monitor closely. Hypotension likely from sedation: Patient on vasopressor support. Continue to wean off. Patient currently intubated. Hyponatremia: Continue IV fluids. Dysphonia suspect laryngeal mass likely cancer: Patient had appointment with ENT yesterday. Patient likely with laryngeal mass. Patient had difficult intubation due to mass. Will order CT neck to further evaluate. Will discuss with ENT. Leukocytosis likely related to above: Continue as above. Much improved. Continue IV antibiotic therapy. Continue with above plan of care. Time Spent Managing Pts Care (In Minutes): 55
--- NOTE | 2019-09-03 08:20 | RAD REPORT ---
EXAM DESCRIPTION: Pushpa Single View09/03/2019 6:28 am CLINICAL HISTORY: Respiratory failure COMPARISON: September 02, 2019 FINDINGS: Mild improvement in a right basilar opacity Mild bilateral interstitial lung opacities. Endotracheal nasogastric tubes in place. Heart is borderline enlarged IMPRESSION: Mild improvement in a right basilar opacity which may represent atelectasis or pneumoni a Mild interstitial pulmonary edema is suspected
[2019-09-03] MEDS ORDERED: SODIUM CHLORIDE 0.9% 10ML INJ IV PRN (08:21)
[2019-09-03] MEDS ORDERED: PANTOPRAZOLE 40 MG INJ IVP SCH (09:00)
[2019-09-03] MEDS: FENTANYL CITR 100 MCG/2 ML IV PRN (09:45)
--- NOTE | 2019-09-03 09:56 | RAD REPORT ---
EXAM DESCRIPTION: CT - Chest For Pe Angio - 09/03/2019 9:31 am CLINICAL HISTORY: Chest pain COMPARISON: None. TECHNIQUE: Dynamically enhanced axial 3 mm thick images of the chest were obtained during administra tion of <100> mL Isovue 370 IV contrast. Coronal and oblique reconstruction images were generated and reviewed. Exam utilizes a protocol for optimal evaluation of pulmonary arterial tree. Maximum intensity projections 3D imaging was utilized All CT scans are performed using dose optimization technique as appropriate and may include automated exposure control or mA/KV adjustment according to patient size. FINDINGS: An endotracheal tube has its tip well above the jane. Nasogastric tube is present within the stomach. A pulmonary embolus is not seen. A thoracic aortic aneurysm is not noted. A pleural effusion is not seen. A pericardial effusion is not seen. Right lower lobe atelectasis is present. An additional mild right middle lobe opacity is present. Sub segmental atelectasis left lung base. Minimal interstitial pulmonary edema is suspected IMPRESSION: Negative for a pulmonary embolism. Mild right middle lobe pneumonia Mild right lower lobe atelectasis
[2019-09-03] MEDS: ENOXAPARIN 40 MG/0.4 ML SQ SCH (10:04)
[2019-09-03] MEDS: CEFEPIME/SWI 1gm 10 ML IVP SCH ×2 (10:06→21:00)
--- NOTE | 2019-09-03 10:37 | RAD REPORT ---
EXAM DESCRIPTION: CT - Soft Tissue Neck Wo Contr - 09/03/2019 9:31 am CLINICAL HISTORY: Intubation, neck injury, neck pain COMPARISON: CT chest same date, portable chest same date TECHNIQUE: During dynamic enhancement using 100 milliliters nonionic IV contrast, axial 5 millimeter thick images of the neck were obtained. All CT scans are performed using dose optimization technique as appropriate and may include automated exposure control or mA/KV adjustment according to patient size. FINDINGS: Limited intracranial portion of the examination shows no acute or emergent finding. No sabrina be or orbital content abnormality. Mastoid air cells are clear. Maxillary, sphenoid and ethmoid air c ells are clear. Left deviation of the nasal septum noted. The no turbinate or nasal passage abnormali ty seen. Cervical vertebrae are normal in height and alignment. No acute bone finding. Central canal detail is inherently limited. No nasopharyngeal mucosal mass or asymmetry seen. Parapharyngeal fat is normal in appearance. No soft palate or tonsil abnormality. NG tube is in place. Endotracheal tube is in place. There small amount of fluid seen along the annual greenhouse manager ior margin of the tube within the oropharynx. This is not unexpected. A discrete soft tissue mass is not confirmed. At the left vocal cord there is a 16 mm AP x 7 mm TR area of decreased density. This i s probably localized vocal cord edema. This does not enhance. No prevertebral soft tissue thickening or mass. No retropharyngeal abscess or emergent finding. The thyroid, parotid and submandibular gland tissue show no suspicious findings. IMPRESSION: A 16 x 7 mm area of diminished density left vocal cord present believed to be edema rela gracia to intubation. There is no enhancement of this area. Laryngeal mass is unlikely. No mass lesion identifiable. No abnormal lymphadenopathy, abscess or other concerning finding.
--- NOTE | 2019-09-03 12:08 | P.CNS ---
Date of Consult: 09/03/19 Primary Care Provider: unknown Chief Complaint: Respiratory failure difficult intubation History of Present Illness: Patient is 54 years of age with presume severe COPD heavy smoker was recently discharged admitted again with respiratory distress had to be intubated difficult intubation as per emergency room physician discussed with the daughter she has been hoarse for quite some time may have a laryngeal mass smokes heavily possibility of alcohol use patient uses her mother mother's nebulizers patient was discharged home on bronchodilators and steroids Allergies No Known Allergies Allergy (Verified 08/28/19 08:21) Home Medications: Albuterol Neb [Proventil 0.083% Neb Soln] 2.5 mg NEB [id number] #60 amp 08/30/19 Fluticasone/Salmeterol [Advair 250-50 Diskus] 1 each IH BID #60 disk.w.dev 08/30 Ipratropium Neb [Atrovent*] 0.5 mg NEB [id number] #30 amp 08/30/19 levoFLOXacin [Levaquin*] 500 mg PO DAILY #5 tab 08/30/19 predniSONE [Deltasone] 10 mg PO BID #10 tab 08/30/19 - Past Medical/Surgical History Diabetic: No -: End-stage COPD -: Back Sir Psychosocial/ Personal History: Unknown patient likely lives at home. - Family History Father Medical History: Heart disease - Social History Smoking Status: Unknown if ever smoked Alcohol use: No CD- Drugs: No Caffeine use: No Place of Residence: Home Review of Systems is unable to be obtained Physical Examination Temp Pulse Resp BP Pulse Ox 96.5 F L 66 16 81/56 L 99 09/03/19 11:00 09/03/19 11:00 09/03/19 11:00 09/03/19 11:00 09/03/19 11:00 General: Unresponsive Respiratory: Expiratory wheezes Cardiovascular: No edema, Regular rate/rhythm Gastrointestinal: Normal bowel sounds, Soft and benign Musculoskeletal: No clubbing, No swelling - Problems (1) Acute respiratory failure with hypoxia and hypercapnia Current Visit: No Status: Acute Plan: Patient is 54 years of age admitted with respiratory failure was recently discharged baseline chronic respiratory failure difficult intubation possibility of for laryngeal neck mass the scan COPD changes no pneumonia mild hypokalemia no evidence of sepsis blood cultures negative on sputum cultures negative will Dc antibiotics consolt ENT high risk for extubation continue bronchodilators. CT scan of the neck is abnormal possible mass
[2019-09-03] MEDS: propofoL 1,000 MG/100 ML VIAL IV PRN ×2 (13:11→23:21)
[2019-09-03] MEDS: METHYLPREDNISOLONE 40 MG INJ IV SCH (17:33)
[2019-09-03] MEDS ORDERED: POTASSIUM 25 MEQ EFFERV TAB PO ONE (19:00)
[2019-09-04] MEDS: FENTANYL CITR 100 MCG/2 ML IV PRN ×5 (00:48→17:50)
[2019-09-04] MEDS: METHYLPREDNISOLONE 40 MG INJ IV SCH ×3 (01:03→17:09)
[2019-09-04] MEDS: NA CHLORIDE 0.9% 1,000 ML IV SCH ×2 (01:03→14:37)
[2019-09-04] MEDS: IPRATROPIUM BROM 0.5MG/2.5ML NEB SCH ×4 (01:55→20:05)
[2019-09-04] MEDS: ALBUTEROL 2.5 MG/3 ML NEB SOL NEB SCH ×4 (01:55→20:05)
[2019-09-04 05:53] LABS: Absolute Lymphocytes (CBC) 0.7 K/uL (0.7-4.9); Basophils % 0.1 % (0-1.3); Hematocrit 35.7 % (36.0-45.0); Lymphocytes % 6.6 % (15.3-44.8); MPV 7.3 fL (7.6-11.3); RBC Red Blood Cell Count 4.06 M/uL (3.86-4.86)
[2019-09-04 06:23] LABS: BUN Blood Urea Nitrogen 17 mg/dL (7-18); Bicarbonate 23 mmol/L (21-32); Glucose Level 125 mg/dL (74-106); Magnesium 2.2 mg/dL (1.8-2.4); Potassium 3.6 mmol/L (3.5-5.1); Sodium Level 140 mmol/L (136-145)
[2019-09-04 06:33] LABS: Blood Gas Oxyhemoglobin 97.2 % (94-97); Blood O2 Saturation 98.9 % (92-98.5)
[2019-09-04] MEDS: propofoL 1,000 MG/100 ML VIAL IV PRN ×3 (06:33→23:58)
[2019-09-04 06:34] LABS: Arterial Blood Carboxyhemoglob 0.8 % (0-1.5)
--- NOTE | 2019-09-04 07:25 | RAD REPORT ---
EXAM DESCRIPTION: Pushpa Single View09/04/2019 6:45 am CLINICAL HISTORY: Shortness of breath COMPARISON: September 03, 2018 FINDINGS: Right lung opacities have partially resolved. Left lung opacities have partially resolved . Lungs are hyperaerated. Tubes in good position. IMPRESSION: Partial resolution in bilateral pulmonary opacities
[2019-09-04] MEDS ORDERED: POTASSIUM 25 MEQ EFFERV TAB PO ONE (08:00)
[2019-09-04] MEDS: CEFEPIME/SWI 1gm 10 ML IVP SCH (08:35)
[2019-09-04] MEDS: ARFORMOTEROL TARTRATE 15 MCG/2 ML VIAL.NEB NEB SCH ×2 (08:35→20:05)
[2019-09-04] MEDS: ENOXAPARIN 40 MG/0.4 ML SQ SCH (08:36)
[2019-09-04] MEDS: LORazepam 2 MG/ML VIAL IV PRN ×2 (09:29→21:51)
--- NOTE | 2019-09-04 10:11 | P.PN ---
Subjective Date of Service: 09/15/19 Primary Care Provider: unknown Chief Complaint: Respiratory failure Subjective: Improving (Patient's condition is stable she is improving alert responsive cooperative seen by ENT) Review of Systems is unable to be obtained Physical Examination - Vital Signs Temperature: 97.6 F Blood Pressure: 115/62 Pulse: 60 Respirations: 14 Pulse Ox (%): 100 - Physical Exam General: Alert, Cooperative Respiratory: Expiratory wheezes Cardiovascular: No edema, Regular rate/rhythm, Normal S1 S2 - Studies Medications List Reviewed: Yes Assessment & Plan - Problems (Diagnosis) (1) Acute respiratory failure with hypoxia Current Visit: Yes Status: Acute
--- NOTE | 2019-09-04 15:41 | PN ---
Subjective: Currently, patient is lying in bed. She looks comfortable. She is on the ventilator. She is little bit agitated. She is going to the OR shortly to have laryngoscopy and decided she need to have tracheostomy. No event overnight. No fever, no chills. Objective: Vital Signs: Blood pressure is 115/62, respiratory rate 14, pulse 60, temperature 97.6. General: Patient is alert, on the vent. She looks comfortable, little bit agitated. HEENT: Atraumatic, normocephalic. PERRLA. Oral mucosa is dry. Neck: Supple. No JVD. No bruit. Chest: Clear to auscultation. Good air entry with rhonchi. Heart: Regular rate and rhythm. S1, S2 normal. No gallop or murmur. Abdomen: Soft, nontender. No masses. No hepatosplenomegaly. Bowel sounds positive. Extremities: No clubbing, no cyanosis, or edema. No calf tenderness. Neurologic: Deferred. Laboratory Data: Today, showed CBC within normal. Chemistry within normal except for glucose 125. Imaging Studies: Chest x-ray done today showed partial resolution of bilateral pulmonary opacities. Assessment/plan: 1.Acute on chronic respiratory failure with hypoxemia, hypercapnia secondary to chronic obstructive pulmonary disease exacerbation with end-stage chronic obstructive pulmonary disease, complicated by r ight lower lobe pneumonia. Patient is sedated, intubated, pending her surgical eval with laryngoscop y to evaluate for possible laryngeal mass. Patient had chronic hoarseness. CT neck did not show any mass; however, they she receive tracheostomy and get extubated. 2.Hypertension, better, most likely secondary to propofol. 3.Hyponatremia, resolved. 4.Hypokalemia, replaced. 5.Dysphonia with questionable laryngeal mass, which was not visible on CT. Patient is getting laryn goscopy today. 6.Leukocytosis, presumed secondary to pneumonia, but then Dr. Lisa does not agree. White cells are back to normal. Dr. Lisa will discontinue antibiotic yesterday. 7.Deep venous thrombosis prophylaxis, on Lovenox. MT/MODL Voice ID: [id number] Report ID: [id number]
--- NOTE | 2019-09-04 21:23 | CON ---
Date of Consultation: 09/04/2019 Requesting Physician: Dr. Whitaker. Reason For Consultation: Airway obstruction, difficult intubation. History Of Present Illness: Ms. Vargas is a 54-year-old heavy smoker who was admitted last week with shortness of breath. She was treated for pneumonia and possible COPD exacerbation. She was noted to have significant dysphonia and told her admitting physician at that time that she had been hoarse for nearly a year. I discussed with Dr. Kiser on the 30 of August regarding inpatient versus outpatient consultation. Dr. Ksier indicated the patient was otherwise clear for discharge and I recommended outpatient consultation to allow for fiberoptic laryngoscopy in the clinic, which would allow for recording and better patient education. The team was agreeable and the patient was discharged with plan for outpatient consultation on September 02 at 8 a.m. However, the patient had significant shortness of breath and difficulty breathing and was at home when symptoms worsened. The patient called 911 and was brought to the emergency room on the morning of September 02. She was subsequently intubated. I spoke with the emergency room staff including Kolton Martel, who was present at the time of her intubation. Per his report, he performed the initial laryngoscopy. He was able to visualize the base of tongue and the right vocal fold, which appeared normal. He reports he did not see the left vocal cord and that the left aspect of the larynx looks significantly abnormal with excessive amounts of red tissue. He did not attempt intubation at that time due to the abnormal finding and deferred to the attending ER MD who was present at the bedside. The patient was then successfully intubated with a 6-[address] Mccarty, the emergency room attending physician, and she was brought to the ICU for further care and evaluation. The patient is unable to provide any history due to her intubated status, but I spoke with her daughter and her son this morning. They report the patient has approximately 2- to 3-year history of pill dysphagia and some mild difficulty swallowing, but over the last year has had progressive dysphonia and significant change in her voice and difficulty talking, but has not had difficulty breathing until more recently. The family also notes the patient has complained of sore throat for several weeks to months, but exact duration is unclear. The patient has also been complaining of left ear pain for several weeks or months. She was interested in obtaining antibiotics for a presumed ear infection as a source of the ear pain, but has little interaction with the medical community and does not like going to the doctor. There is no known hemoptysis and no recent ENT or other airway evaluation. No known history of surgery of the voice box or neck. No prior swallow evaluation. No obvious weight loss, though the patient's current and baseline weight are unknown by the family. It is unclear as to whether the patient has been having changes in her diet due to her dysphagia or sore throat. Of note, the patient was living out of [facility] and moved to [place] within the last year following the of her own mother and in order to be closer to her adult children. Allergies: NONE. Past Medical History: COPD, possible back surgery. Family History: Heart disease. Social History: Tobacco, heavy daily user. History of alcohol abuse, but not felt to be a daily drinker according to the patient's daughter. Review of Systems: Unable to obtain. Physical Examination: General: The patient is sedated. She has an oral endotracheal tube and is on the ventilator. HEENT: Her head and Face are atraumatic and normocephalic. Her pupils are small, but reactive. Her nares are patent. The lips are unremarkable. Further oral examination is difficult due to the presence of the oral endotracheal tube. Neck: Supple. There is no palpable lymphadenopathy. Her trachea is approximately midline. Data: Her white count today is normal. It was previously elevated during her recent admission. Her platelet count is normal. Her red blood cell count, hemoglobin and hematocrit are normal. Today's blood gases show normal pCO2, her pCO2 was significantly elevated on arrival in the emergency room and subsequently decreased with mechanical ventilation. She is currently on 40% oxygen at the time of her recent blood gas. Her renal function is normal. Her electrolytes are within acceptable normal limits. Procalcitonin on admission was low. Her thyroid function was mildly elevated during her last admission with a TSH of 0.328. It is unknown if the patient is currently on levothyroxine at home. Urinalysis on arrival was negative. Current medications Tylenol, albuterol, Brovana, Lovenox, sentinel, haloperidol , Atrovent, Ativan, Solu-Medrol, versed, propofol, Zofran. The patient did receive a dose of cefepime today, but this may have been discontinued. CT of the neck with contrast was performed on September 03. The impression is a 16 x 7 mm area of diminished density around the left vocal cord, thought to be edema related to traumatic intubation. There was no contrast enhancing mass and no lymphadenopathy was noted. Assessment: Difficult intubation, airway obstruction, the respiratory failure, acute on chronic obstructive pulmonary disease, tobacco abuse, possible laryngeal mass. Based on findings during intubation, difficulty of intubation, and overall clinical history provided by the patient's daughter, I am concerned about a laryngeal malignancy as a cause of her symptoms. Plan: My recommendation is for airway evaluation in the operating room, including a direct laryngoscopy. If a laryngeal mass is confirmed, I would recommend proceeding immediately with tracheostomy followed by repeat direct laryngoscopy and biopsy of said lesions. Other diagnostic possibility includes obstructive vocal polyps and consideration would be made for excision of polyp and extubation if deemed clinically appropriate. Given the patient's chronic dysphonia with sore throat and ear pain, my suspicion is for malignant process. I briefly discussed with the patient's daughter and son regarding staging and treatment. If she is found to have an early stage tumor, treatment includes radiation with possible chemotherapy. 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 If the patient confirmed to have a T4 lesion, patients often require postoperative radiation in association with their laryngectomy surgery. I discussed with the patient's family, the benefits of the tracheostomy to allow the patient to be weaned from sedation and mechanical ventilation, so that she can be appropriately involved in the decision making for her medical conditions. Due to patient's receiving Lovenox this morning, the Anesthesia service would like to defer surgical intervention until Friday. We will plan to hold the patient's Lovenox tonight and tomorrow morning and proceed with the surgical plan including direct laryngoscopy with biopsy and possible tracheostomy. Following tracheostomy, the patient will likely require hospitalization for approximately 5-7 days in order to allow for arrangement for home health as well as tracheostomy supplies including a suction machine. Detailed instructions for home health and DME will be delineated following the patient's surgical procedure. Case management consult may be helpful. BARBARA Voice ID: [id number] Report ID: [id number] MTDModesta
[2019-09-05] MEDS: METHYLPREDNISOLONE 40 MG INJ IV SCH ×3 (00:18→16:43)
[2019-09-05] MEDS: NA CHLORIDE 0.9% 1,000 ML IV SCH ×2 (00:19→16:43)
[2019-09-05] MEDS: FENTANYL CITR 100 MCG/2 ML IV PRN ×4 (00:50→21:50)
[2019-09-05] MEDS: IPRATROPIUM BROM 0.5MG/2.5ML NEB SCH ×4 (01:05→19:40)
[2019-09-05] MEDS: ALBUTEROL 2.5 MG/3 ML NEB SOL NEB SCH ×4 (01:05→19:40)
[2019-09-05 05:31] LABS: Absolute Lymphocytes (CBC) 0.5 K/uL (0.7-4.9); Basophils % 0.1 % (0-1.3); Hematocrit 35.8 % (36.0-45.0); Lymphocytes % 10.3 % (15.3-44.8); MPV 7.7 fL (7.6-11.3); RBC Red Blood Cell Count 4.09 M/uL (3.86-4.86)
[2019-09-05 05:49] LABS: ALT/SGPT 21 U/L (12-78); AST/SGOT 13 U/L (15-37); Albumin 2.5 g/dL (3.4-5.0); Alkaline Phosphatase 47 U/L (45-117); BUN Blood Urea Nitrogen 19 mg/dL (7-18); Bicarbonate 23 mmol/L (21-32); Bilirubin Total 0.4 mg/dL (0.2-1.0); Glucose Level 117 mg/dL (74-106); Magnesium 2.2 mg/dL (1.8-2.4); Potassium 3.7 mmol/L (3.5-5.1); Protein, Total 5.6 g/dL (6.4-8.2); Sodium Level 142 mmol/L (136-145)
[2019-09-05 06:08] LABS: Arterial Blood Carboxyhemoglob 0.7 % (0-1.5); Blood Gas Oxyhemoglobin 96.6 % (94-97)
[2019-09-05] MEDS: propofoL 1,000 MG/100 ML VIAL IV PRN ×2 (07:15→16:43)
[2019-09-05] MEDS: LORazepam 2 MG/ML VIAL IV PRN (07:15)
[2019-09-05] MEDS: ARFORMOTEROL TARTRATE 15 MCG/2 ML VIAL.NEB NEB SCH ×2 (08:15→19:40)
[2019-09-05] MEDS ORDERED: EPINEPHRINE/PF 1 MG/ML AMP ONE (08:37)
[2019-09-05] MEDS ORDERED: LIDOCAINE 1% W/EPI 1:100,000 MDV 20 ML VIAL ONE (08:37)
[2019-09-05] MEDS ORDERED: propofoL 200 MG/20 ML VIAL IV ONE (08:42)
[2019-09-05] MEDS ORDERED: ROCURONIUM 50 MG/5 ML VIAL IV ONE (08:43)
[2019-09-05] MEDS ORDERED: MIDAZOLAM HCL 2 MG/2 ML INJ ONE (08:43)
[2019-09-05] MEDS ORDERED: FENTANYL CITR 250 MCG/5 ML ONE (08:43)
--- NOTE | 2019-09-05 08:45 | RAD REPORT ---
EXAM DESCRIPTION: RAD - Chest Single View - 09/05/2019 7:29 am CLINICAL HISTORY: Shortness of breath, respiratory failure COMPARISON: September 04, March 03 chest exams TECHNIQUE: AP portable chest image was obtained 0650 hours . FINDINGS: Lung volumes are slightly reduced but similar to comparison. Interstitial pattern is simil ar as well. Minimal opacification is seen in the medial left upper lung field. Medial left base remna nt infiltrate or atelectasis noted similar to comparison. The lung street are better aerated. No new or progressive lung finding. Heart and vasculature are normal. No measurable pleural effusion and no pneumothorax. No acute bony abnormality seen. No acute aortic findings suspected. NG tube remains in place. IMPRESSION: No new or progressive cardiopulmonary finding. Patient shows overall improvement in lung aeration. Remnant left lung parenchymal opacities are present similar or slightly improved from most recent com parison.
[2019-09-05] MEDS ORDERED: NA CHLORIDE 0.9% 1,000 ML ONE (09:54)
[2019-09-05] MEDS ORDERED: LABETALOL 20 MG/4ML SYRINGE IV ONE (10:28)
--- NOTE | 2019-09-05 11:09 | P.BOP ---
Preoperative diagnosis: airway obstruction Postoperative diagnosis: L VC and subglottic abnormality Primary procedure: tracheotomy Secondary procedure: Direct laryngoscopy, tracheoscopy, biopsy Other procedure(s): Flexible bronchoscopy Cat Hooker: NONE,NONE Estimated blood loss: <10ml Specimen: L TVF, posterior subglottis, anterior subglottis Findings: significantly abnormal subglottis Anesthesia: General Complications: None Implants: 6 OTTER TRAWLER [place] trachestomy tube Transferred to: Recovery Room Condition: Good
--- NOTE | 2019-09-05 11:11 | P.PN ---
Date of Service: 09/05/19 s/p trach/DL w bx this AM. OK to wean ventilation and sedation per ICU and primary team. Will need case management for home health/trach care supplies Path pending Will continue to follow.
--- NOTE | 2019-09-05 14:54 | PN ---
Subjective: Currently, patient just got back from the OR. She is sleeping with anesthesia. She had a tracheostomy as well as subglottic biopsy for multiple mass. The OR report is still pending, so I do not have the full details. Objective: Vital Signs: Blood pressure 126/76, respiratory rate 12, pulse 58, temperature 97.8 last ly recorded. General: The patient is sedated postop. She looks comfortable. She has a new tracheostomy midline. There is no active bleeding. HEENT: Atraumatic, normocephalic. Oral mucosa is dry. Neck: Supple. Midline trach. Chest: Diffuse rhonchi. Heart: Regular rate and rhythm. S1, S2 normal. No gallop. Abdomen: Soft, nontender. No masses. No hepatosplenomegaly. Positive bowel sounds. Extremities: No clubbing, cyanosis, or edema. No calf tenderness. Neurologic: Deferred. Patient is sedated. Laboratory Data: Today's CBC was normal except for hematocrit 35.8. Chemistry within normal limits except for chloride 112, BUN of 19, creatinine 0.34, glucose 117. Calcium 8.2. AST of 13. Assessment And Plan: 1.Acute on chronic respiratory failure with hypoxemia hypercapnia secondary to chronic obstructive p ulmonary disease exacerbation as well as end-stage chronic obstructive pulmonary disease complicated by right lower lobe infiltrate on x-ray as well as laryngeal obstruction during intubation, worrisome for a mass. The patient underwent a tracheostomy this morning as well as subgluteal biopsy. Pathol ogy is still pending. We will continue patient on the vent at this point with the high-dose steroid. Dr. Lisa discontinue her antibiotic as he did not believe there is an active infection. 2.Hypotension, mostly secondary to her sedation previously. Observe for now. 3.Hypokalemia and hyponatremia, both resolved. 4.Dysphonia with questionable laryngeal mass biopsy done and still pending. Patient received trache ostomy today. 5.Leukocytosis, resolved. Currently likely off antibiotics according to Dr. Lisa. 6.Deep vein thrombosis prophylaxis, on Lovenox. MT/MODL Voice ID: [id number] Report ID: [id number]
[2019-09-06] MEDS: propofoL 1,000 MG/100 ML VIAL IV PRN ×2 (00:06→05:06)
[2019-09-06] MEDS: METHYLPREDNISOLONE 40 MG INJ IV SCH ×2 (00:08→09:42)
[2019-09-06] MEDS: ALBUTEROL 2.5 MG/3 ML NEB SOL NEB SCH ×2 (01:55→07:56)
[2019-09-06] MEDS: IPRATROPIUM BROM 0.5MG/2.5ML NEB SCH ×4 (01:55→20:10)
[2019-09-06] MEDS: LORazepam 2 MG/ML VIAL IV PRN ×4 (03:05→20:37)
[2019-09-06] MEDS: NA CHLORIDE 0.9% 1,000 ML IV SCH (05:06)
[2019-09-06 05:15] LABS: Absolute Lymphocytes (CBC) 0.4 K/uL (0.7-4.9); Basophils % 0.1 % (0-1.3); Hematocrit 34.7 % (36.0-45.0); Lymphocytes % 5.1 % (15.3-44.8); MPV 7.7 fL (7.6-11.3); RBC Red Blood Cell Count 3.93 M/uL (3.86-4.86)
[2019-09-06 05:25] LABS: BUN Blood Urea Nitrogen 14 mg/dL (7-18); Bicarbonate 20 mmol/L (21-32); Glucose Level 106 mg/dL (74-106); Potassium 3.3 mmol/L (3.5-5.1); Sodium Level 141 mmol/L (136-145)
[2019-09-06 06:52] LABS: Blood Morphology Comment NOT SEEN (NOT SEEN); Platelet Estimate ADEQ
[2019-09-06] MEDS: ARFORMOTEROL TARTRATE 15 MCG/2 ML VIAL.NEB NEB SCH ×2 (07:56→20:10)
--- NOTE | 2019-09-06 07:56 | P.PN ---
Subjective Date of Service: 09/06/19 Primary Care Provider: unknown Chief Complaint: Respiratory failure Subjective: New changes (s/p trach yesterday , no visible laryngeal mass seen , s/p biopsy obtained -staff report intermittent agitation - kaye for weaning trial today - still on vent) Review of Systems is unable to be obtained Physical Examination - Vital Signs Temperature: 97.1 F Blood Pressure: 112/70 Pulse: 54 Respirations: 14 Pulse Ox (%): 100 - Physical Exam General: In no apparent distress (on vent ), Delirious HEENT: Atraumatic, Normocephalic Neck: Other (trach insitu , fio02 35%) Respiratory: Normal air movement, Crackles/rales (coarse ,improved with secrestion drainage ) Cardiovascular: No edema, Normal pulses, Regular rate/rhythm, Normal S1 S2 Gastrointestinal: Normal bowel sounds, Soft and benign Musculoskeletal: No clubbing, No swelling, No contractures Neurological: Other - Studies Laboratory Last Values WBC 8.3 K/uL (4.3-10.9) D 09/06/19 04:37 RBC 3.93 M/uL (3.86-4.86) 09/06/19 04:37 Hgb 11.6 g/dL (12.0-15.0) L 09/06/19 04:37 Hct 34.7 % (36.0-45.0) L 09/06/19 04:37 MCV 88.2 fL (80-100) 09/06/19 04:37 MCH 29.6 pg (27.0-35.0) 09/06/19 04:37 MCHC 33.5 g/dL (32.0-36.0) 09/06/19 04:37 RDW 13.5 % (12.1-15.2) 09/06/19 04:37 Plt Count 194 K/uL (152-406) 09/06/19 04:37 MPV 7.7 fL (7.6-11.3) 09/06/19 04:37 Neutrophils % 89.1 % (41.7-73.7) H 09/06/19 04:37 Lymphocytes % 5.1 % (15.3-44.8) L 09/06/19 04:37 Monocytes % 5.7 % (3.3-12.3) 09/06/19 04:37 Eosinophils % 0.0 % (0-4.4) 09/06/19 04:37 Basophils % 0.1 % (0-1.3) 09/06/19 04:37 Absolute Neutrophils 7.4 K/uL (1.8-8.0) 09/06/19 04:37 Segmented Neutrophils 86 % (40-80) H 09/06/19 04:37 Band Neutrophils 1 % (0-1) 09/06/19 04:37 Absolute Lymphocytes 0.4 K/uL (0.7-4.9) L 09/06/19 04:37 Lymphocytes 5 % (15-42) L 09/06/19 04:37 Monocytes 8 % (0-10) 09/06/19 04:37 Absolute Monocytes 0.5 K/uL (0.1-1.3) 09/06/19 04:37 Absolute Eosinophils 0.0 K/uL (0-0.5) 09/06/19 04:37 Absolute Basophils 0.0 K/uL (0-0.5) 09/06/19 04:37 Morphology Comment Not seen (NOT SEEN) 09/06/19 04:37 pH 7.36 (7.35-7.45) 09/05/19 05:00 pCO2 36.3 mmHG (35-45) 09/05/19 05:00 pO2 113.0 mmHG (75-100) H 09/05/19 05:00 HCO3 20.2 mmol/L (22-28) L 09/05/19 05:00 Base Excess -4.2 mmol/L 09/05/19 05:00 Oxyhemoglobin 96.6 % (94-97) 09/05/19 05:00 ABG O2 Sat (Measured) 98.0 % (92-98.5) 09/05/19 05:00 ABG Carboxyhemoglobin 0.7 % (0-1.5) 09/05/19 05:00 ABG Methemoglobin 0.7 % (0-1.5) 09/05/19 05:00 Other Total Hgb 12.4 g/dl (12-18) 09/05/19 05:00 Inspired O2 40.0 % 09/05/19 05:00 Sodium 141 mmol/L (136-145) 09/06/19 04:37 Potassium 3.3 mmol/L (3.5-5.1) L 09/06/19 04:37 Chloride 115 mmol/L (98-107) H 09/06/19 04:37 Carbon Dioxide 20 mmol/L (21-32) L 09/06/19 04:37 BUN 14 mg/dL (7-18) 09/06/19 04:37 Creatinine 0.37 mg/dL (0.55-1.3) L 09/06/19 04:37 Estimated GFR > 90 mL/min (=/>90) 09/06/19 04:37 Glucose 106 mg/dL (74-106) 09/06/19 04:37 Specific [place] 1.020 (1.005-1.030) 09/04/19 15:55 Lactic Acid 0.8 mmol/L (0.4-2.0) 09/02/19 09:25 Calcium 7.9 mg/dL (8.5-10.1) L 09/06/19 04:37 Magnesium 2.0 mg/dL (1.8-2.4) 09/06/19 04:37 Total Bilirubin 0.4 mg/dL (0.2-1.0) 09/05/19 04:45 AST 13 U/L (15-37) L 09/05/19 04:45 ALT 21 U/L (12-78) 09/05/19 04:45 Alkaline Phosphatase 47 U/L (45-117) 09/05/19 04:45 Rapid Troponin I < 0.02 ng/mL (0.0-0.045) 09/02/19 09:15 NT-Pro-B Natriuret Pep 137 pg/mL (<125) H 09/02/19 09:15 Serum Total Protein 5.6 g/dL (6.4-8.2) L 09/05/19 04:45 Albumin 2.5 g/dL (3.4-5.0) L 09/05/19 04:45 Globulin 3.1 g/dL (2.3-3.5) 09/05/19 04:45 Albumin/Globulin Ratio 0.8 (1.1-1.8) L 09/05/19 04:45 Procalcitonin < 0.05 ng/mL (<0.50) 09/02/19 09:15 Urine Color Yellow 09/02/19 15:53 Urine Appearance Clear 09/02/19 15:53 Urine pH 7.5 (5.0-7.0) H 09/02/19 15:53 Ur Specific [place] 1.010 (1.005-1.030) 09/02/19 15:53 Urine Ketones Negative (NEG) 09/02/19 15:53 Urine Blood Negative (NEG) 09/02/19 15:53 Urine Nitrite Negative (NEG) 09/02/19 15:53 Urine Bilirubin Negative (NEG) 09/02/19 15:53 Urine Urobilinogen 0.2 mg/dL (0.2-1.0) 09/02/19 15:53 Ur Leukocyte Esterase Negative (NEG) 09/02/19 15:53 Ur Microscopic Review Cancelled 09/02/19 13:57 Urine Glucose Trace (NEG) 09/02/19 15:53 Urine Total Protein Negative (NEG) 09/02/19 15:53 Urine Test Neg (NEG) 09/04/19 15:55 Medications List Reviewed: Yes Assessment & Plan - Problems (Diagnosis) (1) Subglottic inflammation Current Visit: Yes Status: Acute (2) Pneumonia Current Visit: Yes Status: Acute (3) Hypokalemia Current Visit: Yes Status: Acute (4) Tobacco abuse Current Visit: Yes Status: Acute (5) Acute respiratory failure with hypoxia and hypercapnia Current Visit: No Status: Acute (6) COPD exacerbation Current Visit: No Status: Acute (7) Hyponatremia Current Visit: No Status: Acute (8) Sepsis Current Visit: No Status: Acute Physician Review: Patient Assessed, Agree with Above Assessment and Plan Physician Review Additional Text: Impression: Acute on chronic respiratory failure with hypoxia and hypercapnia secondary to COPD exacerbation likely with end-stage COPD complicated with right lower lobe pneumonia Hypotension likely from sedation Hyponatremia Dysphonia suspect laryngeal mass likely cancer Leukocytosis likely related to above Plan: -follow pulmonary fro weaning trial today - if failed trial , will place NGT and start tube feeding - wean vent as tolerated - will change IVF to d51/2ns with 30kcl now - replete k -follow phosphorous and replete -improved sodium level , c/w to follow - follow pending subglottic biopsy result - will hold off on ordering trach supplies for now until weaned off the vent - Time Spent Managing Pts Care (In Minutes): 36
[2019-09-06] MEDS ORDERED: POTASSIUM PHOS 30 MM in NA CHLORIDE 0.9% 500 ML IV ONE (07:57)
--- NOTE | 2019-09-06 08:25 | ECHO ---
HEIGHT: 5 ft 4 in WEIGHT: 109 lb 14.4 oz DATE OF STUDY: 09/03/[address]: Alexis Lisa MD 2-DIMENSIONAL: YES M.MODE: YES DOPPLER: YES COLOR FLOW: YES TDS: NO PORTABLE: YES DEFINITY: NO BUBBLE STUDY: NO DIAGNOSIS: RESPIRATORY FAILURE CARDIAC HISTORY: CATHERIZATION: NO SURGERY: NO PROSTHETIC VALVE: NO PACEMAKER: NO MEASUREMENTS (cm) DIASTOLIC (NORMALS) SYSTOLIC (NORMALS) IVSd 0.8 (0.6-1.2) LA Diam 3.4 (1.9-4.0) LVEF 59% LVIDd 3.9 (3.5-5.7) LVIDs 2.7 (2.0-3.5) %FS 31% LVPWd 0.9 (0.6-1.2) Ao Diam 2.7 (2.0-3.7) 2 DIMENSIONAL ASSESSMENT: RIGHT ATRIUM: NORMAL LEFT ATRIUM: NORMAL RIGHT VENTRICLE: NORMAL LEFT VENTRICLE: NORMAL TRICUSPID VALVE: NORMAL MITRAL VALVE: MITRAL ANNULAR CALCIFICATION PULMONIC VALVE: NORMAL AORTIC VALVE: NORMAL PERICARDIAL EFFUSION: NONE AORTIC ROOT: NORMAL LEFT VENTRICULAR WALL MOTION: NORMAL DOPPLER/COLOR FLOW: MILD TRICUSPID REGURGITATION. COMMENTS: NORMAL LEFT VENTRICULAR SIZE AND FUNCTION. MITRAL ANNULAR CALCIFICATION. MILD TRICUSPID REGURGITATION. NORMAL RIGHT VENTRICULAR SYSTOLIC PRESSURE. TECHNOLOGIST: Vivi GEORGE
[2019-09-06] MEDS: KCL 20 MEQ/100 mL IVPB 20 MEQ/100 ML BAG IV SCH ×2 (09:42→12:54)
[2019-09-06] MEDS: ENOXAPARIN 40 MG/0.4 ML SQ SCH (09:42)
[2019-09-06] MEDS: D5 0.45 NS 1,000 ML with POTASSIUM CL 30 MEQ IV SCH ×4 (09:48→21:32)
[2019-09-06] MEDS: FENTANYL CITR 100 MCG/2 ML IV PRN ×2 (10:05→22:15)
--- NOTE | 2019-09-06 11:57 | RAD REPORT ---
EXAM DESCRIPTION: RAD - Abdomen 1 View (KUB) - 09/06/2019 11:44 am CLINICAL HISTORY: Device placement Dobhoff tube placement FINDINGS: The Dobhoff tube is coiled within the stomach. The tip lies a couple centimeters from the GE junction.
--- NOTE | 2019-09-06 12:01 | P.PN ---
Subjective Date of Service: 09/06/19 Primary Care Provider: unknown Chief Complaint: Respiratory failure Subjective: Improving (Patient is doing well little agitated status post tracheostomy biopsy pending) Review of Systems is unable to be obtained Physical Examination - Vital Signs Temperature: 97.1 F Blood Pressure: 134/77 Pulse: 63 Respirations: 14 Pulse Ox (%): 100 - Physical Exam General: Alert, Cooperative Respiratory: Clear to auscultation bilaterally Cardiovascular: No edema, Regular rate/rhythm - Studies Medications List Reviewed: Yes Assessment & Plan - Problems (Diagnosis) (1) Acute respiratory failure with hypoxia and hypercapnia Current Visit: No Status: Acute Plan: Patient admitted with respiratory failure which is post tracheostomy plan to wean off the tracheostomy agree with tube feeds Dc Solu-Medrol for now may contribute to agitation Atrovent Q 6 scheduled continue with Jamil chest x- ray shows COPD changes biopsies pending possible malignancy Physician Review: Patient Assessed, Agree with Above Assessment and Plan
--- NOTE | 2019-09-06 12:43 | RAD REPORT ---
EXAM DESCRIPTION: RAD - Abdomen 1 View (KUB) - 09/06/2019 12:38 pm CLINICAL HISTORY: dobhoff placement Pain COMPARISON: Abdomen 1 View (KUB) dated 09/06/2019 FINDINGS: Tip of enteric tube is in the stomach.
[2019-09-06] MEDS ORDERED: VITAL AF 1,000 ML BOT RTH SCH ×2 (16:00)
--- NOTE | 2019-09-06 17:47 | OP ---
Date of Procedure: 09/05/2019 Surgeon: Rhiannon Mathew MD Preoperative Diagnoses: Airway obstruction, respiratory failure, concern for obstructive lesion in the upper aerodigestive tract. Postoperative Diagnoses: Airway obstruction, respiratory failure, concern for obstructive lesion in the upper aerodigestive tract, subglottic lesion, left vocal fold lesion. Procedure: Direct laryngoscopy with telescope and biopsy, tracheostomy, flexible bronchoscopy via established tracheostomy. Indication For Procedure: Lianne Vargas is a 54-year-old to this hospital last week for shortness of breath and has an approximately 1 year history of dysphonia. She was scheduled for outpatient evaluation for her voice complaints , but developed worsening shortness of breath and difficulty breathing, and went back to the emergency room. There she underwent intubation by the emergency room staff with report of difficulty intubating the patient due to abnormal laryngeal appearance and inability to pass a 7 or 6.5 tube. The patient has a history of heavy tobacco use and an uncertain degree of alcohol use. The risks, benefits, and alternatives to procedure were discussed with the patient's son and daughter and they agree to proceed. Description In Detail: The patient was brought to the operating room. She was placed under general anesthesia via an existing 6.0 endotracheal tube. A Yenifer laryngoscope was used to perform a direct laryngoscopy and was placed in suspension. A 15-degree rigid endoscope was used to provide photographic documentation of the findings. The supraglottic regions including the epiglottis area, epiglottic folds, visualized portions of the arytenoids and false vocal folds, all appeared essentially normal. The left true vocal fold was moderately erythematous with some mass appearing lesion anteriorly near the anterior commissure. The appearance of the larynx was not overly concerning for obstructive pathology, but there was some abnormal appearance in the subglottis. The examination of the subglottis was some limited by the presence of the endotracheal tube, but visualized portions appeared to be white, possible fibrinous, possible papillomatous material and decision was made to proceed with tracheostomy for further evaluation and better visualization of the subglottis and to secure a stable airway for the patient. The laryngoscope was then withdrawn and the patient was positioned for tracheostomy. The planned incision site was injected with 1% lidocaine with epinephrine. The neck was prepped with DuraPrep and was allowed to dry for full 3 minutes prior to draping. A 2 cm incision was made through the skin and subcutaneous tissues. The strap muscles were identified in the midline and and retracted laterally with the [facility] retractors. The paratracheal fascia was then divided and the tracheal rings were well visualized. The isthmus of the thyroid was carefully mobilized and retracted superiorly. The planned tracheostomy steps were confirmed with the fiber technician and with Anesthesia ensuring that the tracheostomy tube balloon had been tested and all necessary instrumentation was close at hand. The Anesthesia staff then deflated the tracheostomy cuff. An incision was made between the second and third tracheal rings and enlarged slightly using the curved scissors. The tracheal central office supervisor was then placed in the endotracheal tube was well visualized. The tube was slowly withdrawn until the tip was barely visible through the tracheostomy incision. A 6.0 cuffed tracheostomy tube was then placed within the trachea. The obturator was removed and replaced with the inner cannula. The cuff was inflated and the anesthesia circuit was connected, placement was confirmed by return of CO2 and visible chest rise with insufflation. The retractors were then removed and the endotracheal tube was secured using 2-0 silk suture in a four-point fashion. The umbilical tie was then placed on the neck to further secure the tube. The endotracheal tube was completely removed from the patient's mouth and secondary laryngoscopy and tracheoscopy was performed. The gauzz laryngoscope was used and fitted with the rigid 15 degree telescope. Photo documentation of the glottis was performed. An arytenoid central office supervisor was placed on the posterior aspect of the vocal cords and used to separate the vocal cords for better demonstration of the left anterior glottic lesion. A longer rigid 0- degree endoscope was then used to better visualize the subglottic region. The left and anterior region of the subglottis appeared significantly abnormal with an irregular white fibrinous-debris appearance but the material was adherent to the tracheal wall and not able to be suctioned away. The subglottis was narrowed. The posterior right aspect of the subglottic mucosa appeared normal. An up-biting cup forceps was used to collect several specimens from the subglottis and sent to pathology for permanent section. On close inspection during this part of the procedure, suspicion for papilloma is low based on the appearance of the lesion. Additional specimen is collected from the left true vocal fold and sent as a separate specimen. Finally, some fibrinous debris/ material from the posterior subglottis is collected and sent as a third specimen. The area was carefully suctioned. There was no significant bleeding noted. The tracheostomy tube is seen distally and the mucosa just proximal to the tracheotomy appeared regular, smooth and healthy circumferentially. The laryngoscope and all instruments are removed. The pledget count is correct and the final portion of the procedure is started. A 6 mm flexible bronchoscope is passed through the tracheostomy tube for examination of the distal trachea and mainstem bronchi. The distal trachea, jane, and the right and left bronchi appear essentially normal with no evidence of lesions. There is scant blood, likely from recent surgical procedure, but no specific concerning lesions. The bronchoscope was then withdrawn. The patient was reconnected to the anesthesia circuit and transported under bag ventilation back to the ICU for further critical care management. Weaning of sedation and mechanical ventilation can be done at the discretion of the critical care team. Patient is expected to remain in-house for at least 4- 5 days following tracheostomy in order to arrange for appropriate durable medical equipment and tracheostomy supplies as well as for teaching of the family regarding tracheostomy care. Further disposition regarding care will depend on the results of the biopsies. BYRON/HANS Voice ID: [id number] Report ID: [id number] MARYANA
[2019-09-07] MEDS: IPRATROPIUM BROM 0.5MG/2.5ML NEB SCH ×4 (01:15→20:30)
[2019-09-07] MEDS: D5 0.45 NS 1,000 ML with POTASSIUM CL 30 MEQ IV SCH ×4 (01:27→15:43)
[2019-09-07] MEDS: LORazepam 2 MG/ML VIAL IV PRN ×2 (01:45→15:35)
[2019-09-07] MEDS: FENTANYL CITR 100 MCG/2 ML IV PRN ×2 (06:00→12:20)
[2019-09-07 06:30] LABS: Basophils % 0.2 % (0-1.3); Hematocrit 34.6 % (36.0-45.0); Lymphocytes % 28.1 % (15.3-44.8); MPV 7.6 fL (7.6-11.3); RBC Red Blood Cell Count 3.97 M/uL (3.86-4.86)
[2019-09-07 06:32] LABS: ALT/SGPT 26 U/L (12-78); AST/SGOT 22 U/L (15-37); Albumin 2.3 g/dL (3.4-5.0); Alkaline Phosphatase 48 U/L (45-117); BUN Blood Urea Nitrogen 13 mg/dL (7-18); Bicarbonate 21 mmol/L (21-32); Bilirubin Total 0.4 mg/dL (0.2-1.0); Glucose Level 99 mg/dL (74-106); Magnesium 1.8 mg/dL (1.8-2.4); Potassium 4.1 mmol/L (3.5-5.1); Protein, Total 5.2 g/dL (6.4-8.2); Sodium Level 140 mmol/L (136-145)
[2019-09-07] MEDS ORDERED: MAGNESIUM SULFATE 1 gm IVPB 1 GM/100 ML BAG IV ONE (07:30)
--- NOTE | 2019-09-07 08:23 | P.PN ---
Subjective Date of Service: 09/07/19 Primary Care Provider: unknown Chief Complaint: Respiratory failure Subjective: Improving (Patient is doing well alert responsive oriented cooperative) Review of Systems is unable to be obtained Physical Examination - Vital Signs Temperature: 98.3 F Blood Pressure: 100/66 Pulse: 64 Respirations: 12 Pulse Ox (%): 100 - Physical Exam General: Alert, Cooperative Respiratory: Clear to auscultation bilaterally Cardiovascular: No edema, Regular rate/rhythm - Studies Medications List Reviewed: Yes Assessment & Plan - Problems (Diagnosis) (1) Acute respiratory failure with hypoxia and hypercapnia Current Visit: No Status: Acute Plan: Patient is doing well plan to wean and extubate from the ventilator labs reviewed blood pressure is slightly low due to pain medications Physician Review: Patient Assessed, Agree with Above Assessment and Plan Physician Review Additional Text: Impression: Acute on chronic respiratory failure with hypoxia and hypercapnia secondary to COPD exacerbation likely with end-stage COPD complicated with right lower lobe pneumonia Hypotension likely from sedation Hyponatremia Dysphonia suspect laryngeal mass likely cancer Leukocytosis likely related to above Plan: -follow pulmonary fro weaning trial today - if failed trial , will place NGT and start tube feeding - wean vent as tolerated - will change IVF to d51/2ns with 30kcl now - replete k -follow phosphorous and replete -improved sodium level , c/w to follow - follow pending subglottic biopsy result - will hold off on ordering trach supplies for now until weaned off the vent -
[2019-09-07] MEDS: ARFORMOTEROL TARTRATE 15 MCG/2 ML VIAL.NEB NEB SCH ×2 (08:30→20:30)
[2019-09-07] MEDS: ENOXAPARIN 40 MG/0.4 ML SQ SCH (10:02)
--- NOTE | 2019-09-07 16:10 | PN ---
Date of Progress Note: 09/07/2019 History: Patient is seen and examined. Chart reviewed and case discussed with RN, Dr. Mathew, and Dr. Lisa. Patient is much more awake and alert this morning per nursing staff. Plan is to wean her off the ventilator. Medications: List reviewed. Physical Examination: Vital Signs: Temperature 98.3, heart rate 64, blood pressure 100/66, respirations 12, O2 of 100% on 35% FiO2. General: Awake, alert, not sedated. Ill-appearing female, in mild respiratory distress, frail, cachectic. CV: S1, S2. Regular rate and rhythm. Peripheral pulses weak. Respiratory: Diminished breath sounds. No wheezing or stridor. No use of accessory muscles. Gastrointestinal: Abdomen is soft, nontender, nondistended. Positive bowel sounds. No guarding or rigidity. Extremities: No clubbing, cyanosis, or edema. Neuro: Patient is on ventilator, not sedated. Follows commands. Moves all 4 extremities. Opens eyes spontaneously. Laboratory Data: Sodium 140, potassium 4.1, chloride 112, CO2 of 21, BUN 13, creatinine 0.41, glucose 99, calcium 7.6. Magnesium 1.8. Albumin 2.3. WBC 10.6, H and H 12 and 34.6, platelets 200, neutrophils 61%. Blood cultures, no growth to date. Sputum cultures pending. Pathology specimen is also pending. Assessment: A 54-year-old female with: 1. Acute on chronic respiratory failure with hypoxia and hypercapnia secondary to chronic obstructive pulmonary disease exacerbation and right lower lobe pneumonia. Currently, on ventilator and status post tracheostomy. Being weaned. 2. Sepsis, improving. 3. Hypotension, likely from sedation. 4. Subglottic inflammation. Cultures negative. 5. Dysphonia, possible laryngeal mass and cancer. Pathology specimens pending. Biopsies were taken by ENT. 6. Right lower lobe pneumonia. Continue antibiotics. 7. Severe protein-calorie malnutrition. Albumin is 2.3. 8. Hypophosphatemia. We will replace and monitor. 9. Hyponatremia. Continue to monitor. Plan: Continue weaning. Follow up on biopsy results. SA/MODL Voice ID: [id number] Report ID: [id number] [facility]
[2019-09-07] MEDS: MELATONIN 3 MG TABLET PO PRN (23:53)
[2019-09-08 05:07] LABS: Basophils % 0.3 % (0-1.3); Hematocrit 40.5 % (36.0-45.0); Lymphocytes % 22.8 % (15.3-44.8); MPV 8.2 fL (7.6-11.3); RBC Red Blood Cell Count 4.74 M/uL (3.86-4.86)
[2019-09-08] MEDS: D5 0.45 NS 1,000 ML with POTASSIUM CL 30 MEQ IV SCH ×2 (05:54)
[2019-09-08] MEDS: IPRATROPIUM BROM 0.5MG/2.5ML NEB SCH ×4 (08:00→20:00)
--- NOTE | 2019-09-08 08:32 | P.PN ---
Subjective Date of Service: 09/15/19 Primary Care Provider: unknown Chief Complaint: Respiratory failure Subjective: Improving (Patient is doing better on trach collar now) Review of Systems is unable to be obtained Physical Examination - Vital Signs Temperature: 98.2 F Blood Pressure: 108/68 Pulse: 92 Respirations: 21 Pulse Ox (%): 97 - Physical Exam General: Alert Respiratory: Clear to auscultation bilaterally Cardiovascular: No edema, Regular rate/rhythm Gastrointestinal: Normal bowel sounds, Soft and benign - Studies Microbiology Data (last 24 hrs): 09/02/19 09:30 Blood - Blood Aerobic Blood Culture - Final No growth in 5 days. 09/02/19 09:30 Blood - Blood Anaerobic Blood Culture - Final No growth in 5 days. 09/02/19 09:15 Blood - Blood Aerobic Blood Culture - Final No growth in 5 days. 09/02/19 09:15 Blood - Blood Anaerobic Blood Culture - Final No growth in 5 days. Medications List Reviewed: Yes Assessment & Plan - Problems (Diagnosis) (1) Acute respiratory failure with hypoxia and hypercapnia Current Visit: No Status: Resolved Plan: P patient is doing better and trach collar heated change to cuffless trach to her try a Passy Kika valve pathology is pending labs reviewed patient is on tube feeds stable to be transferred to the floor Physician Review: Patient Assessed, Agree with Above Assessment and Plan Physician Review Additional Text: I
[2019-09-08] MEDS ORDERED: MAGNESIUM SULFATE 1 gm IVPB 1 GM/100 ML BAG IV ONE (09:00)
[2019-09-08] MEDS: ENOXAPARIN 40 MG/0.4 ML SQ SCH (09:07)
[2019-09-08] MEDS: ARFORMOTEROL TARTRATE 15 MCG/2 ML VIAL.NEB NEB SCH ×2 (13:14→19:45)
[2019-09-08] MEDS: FENTANYL CITR 100 MCG/2 ML IV PRN (13:21)
--- NOTE | 2019-09-08 16:12 | PN ---
Date of Progress Note: 09/08/2019 Subjective: Patient seen and examined. Chart reviewed and case discussed with RN, Dr. Lisa, and Dr. Sahu. Patient is now off the ventilator, doing well. Seems to be depressed. Still has a trach collar in place and NG tube for feeds. Unable to have a speech therapy evaluation until collar is changed. Medications: List reviewed. Physical Examination: Vital Signs: Temperature 98.2, heart rate 92, blood pressure 108/68, respirations 21, O2 97% on 5 L via trach collar. GENERAL: Awake, alert, oriented x3, in some mild distress, appears older than stated age, ill-appear ing female, in mild respiratory distress, cachectic, frail. CV: S1, S2. Regular rate and rhythm. Peripheral pulses weak. Respiratory: Diminished breath sounds. Some rales heard. No wheezing or stridor. Gastrointestinal: Abdomen is soft, nontender, nondistended. Positive bowel sounds. No guarding or rigidity. Extremities: No clubbing, cyanosis, or edema. Neurologic: Nonfocal. Laboratory Data: WBC 13.4, H and H 13.8 and 40.5, platelets 217. Neutrophils 65%. Blood cultures, no growth to date. Final sputum cultures are pending. Assessment: A 54-year-old female with: 1.Acute on chronic respiratory failure with hypoxia and hypercapnia secondary to chronic obstructive pulmonary disease and right lower lobe pneumonia. Patient now off ventilator, currently on 5 L via trach collar. Appreciate Dr. Lisa's input. 2.Sepsis, improving. Cultures are negative to date. Continue antibiotics. 3.Hypotension, likely from sedation, improved. 4.Subglottic inflammation. Cultures are negative. 5.Dysphonia, possible laryngeal mass and cancer. Pathology specimen is pending from a biopsy. 6.Right lower lobe pneumonia, improved. 7.Severe protein-calorie malnutrition. Albumin 2.3. Currently on tube feeds. 8.Hypophosphatemia. Replace and monitor. 9.Hyponatremia, corrected. 10.Deep venous thrombosis prophylaxis addressed. Patient is on Lovenox. Plan: Step down to tele floor. Speech therapy once switched to cuffless trach. SA/MODL Voice ID: [id number] Report ID: [id number]
[2019-09-08] MEDS ORDERED: PHENOL 1.4% ORAL SPRAY 180ML MM PRN (22:09)
[2019-09-08] MEDS: MORPHINE 2 MG/ML SYR IV PRN (23:13)
[2019-09-08] MEDS: MELATONIN 3 MG TABLET PO PRN (23:13)
[2019-09-09] MEDS: IPRATROPIUM BROM 0.5MG/2.5ML NEB SCH ×2 (01:20→08:20)
[2019-09-09 04:47] LABS: Absolute Lymphocytes (CBC) 3.4 K/uL (0.7-4.9); Basophils % 0.4 % (0-1.3); Hematocrit 40.8 % (36.0-45.0); Lymphocytes % 23.2 % (15.3-44.8); MPV 8.5 fL (7.6-11.3); RBC Red Blood Cell Count 4.74 M/uL (3.86-4.86)
[2019-09-09 05:16] LABS: Magnesium 1.9 mg/dL (1.8-2.4)
[2019-09-09 05:46] LABS: BUN Blood Urea Nitrogen 18 mg/dL (7-18); Bicarbonate 24 mmol/L (21-32); Glucose Level 119 mg/dL (74-106); Potassium 3.7 mmol/L (3.5-5.1); Sodium Level 136 mmol/L (136-145)
[2019-09-09] MEDS: KCL 20 MEQ/100 mL IVPB 20 MEQ/100 ML BAG IV SCH ×2 (07:00→08:54)
[2019-09-09] MEDS: ARFORMOTEROL TARTRATE 15 MCG/2 ML VIAL.NEB NEB SCH ×2 (08:20→20:05)
[2019-09-09] MEDS: ENOXAPARIN 40 MG/0.4 ML SQ SCH (08:52)
[2019-09-09] MEDS: PARoxetine HCl 10 MG TAB PO SCH (08:52)
--- NOTE | 2019-09-09 12:10 | P.PN ---
Subjective Date of Service: 09/09/19 Primary Care Provider: unknown Chief Complaint: COPD exacerbation laryngeal cancer Subjective: Improving Doing well no complaints tolerating trach collar no fever chills white count is little elevated preliminary biopsy possible cancer. Review of Systems ENT: Throat Pain Physical Examination - Vital Signs Temperature: 97.1 F Blood Pressure: 89/52 Pulse: 97 Respirations: 14 Pulse Ox (%): 97 - Physical Exam General: Alert, In no apparent distress, Oriented x3 Respiratory: Clear to auscultation bilaterally, Diminished Cardiovascular: No edema, Regular rate/rhythm - Studies Medications List Reviewed: Yes Assessment & Plan - Problems (Diagnosis) (1) Laryngeal cancer Current Visit: Yes Status: Acute Plan: Biopsy pending preliminary report likely laryngeal cancer patient status post tracheostomy agree with changing to a cuffless tube and a Passy Kika valve radiation oncology Consul stitch she is going to need radiation and staging also recommended GI Consul for possible PEG tube insertion (2) COPD exacerbation Current Visit: No Status: Acute Plan: Patient is doing better white count is steadily increasing start on IV Lasix a repeat chest x-ray sputum cultures chemistries reviewed patient not on any steroids agree with some antibiotics Physician Review: Patient Assessed, Agree with Above Assessment and Plan
--- NOTE | 2019-09-09 12:37 | RAD REPORT ---
EXAM DESCRIPTION: RAD - Chest Single View - 09/09/2019 12:25 pm CLINICAL HISTORY: RO pnumonia Chest pain. COMPARISON: Abdomen 1 View (KUB) dated 09/06/2019; Abdomen 1 View (KUB) dated 09/06/2019; Chest Single View dated 09/05/2019; Chest Single View dated 09/04/2019 FINDINGS: Portable technique limits examination quality. The lungs are grossly clear. The heart is normal in size. Tracheostomy tube tip is above the jane.E nteric tube descends into the stomach.
[2019-09-09] MEDS: LORazepam 2 MG/ML VIAL IV PRN ×2 (14:03→20:53)
[2019-09-09] MEDS: Levofloxacin500mg IV 500 MG/100 ML BAG IV SCH (14:06)
--- NOTE | 2019-09-09 14:29 | PN ---
Date of Progress Note: 09/09/2019 Subjective: Patient seen and examined. Chart reviewed and case discussed with Dr. Lisa and Dr. Wilhelm per verbal report. The pathology specimens come back positive for cancer. Medications: List reviewed. Physical Examination: Vital Signs: Temperature 97.1, heart rate 97, blood pressure 89/50, respirations 14, O2 of 97% on 9 L via trach collar. General: Awake, alert, and oriented x3, in some mild distress, appears older than stated age frail c achectic female. CV: S1, S2. Regular rate and rhythm. Peripheral pulses present. Respiratory: Diminished breath sounds. No wheezing or stridor. Gastrointestinal: Abdomen is soft, nontender, nondistended. Positive bowel sounds. Extremities: No clubbing, cyanosis, edema. Neurologic: Nonfocal. Neck: Trach collar in place. Laboratory Data: Sodium 136, potassium 3.7, chloride 103, CO2 of 24, BUN 18, creatinine 0.46, glucos e 119, calcium 8.8, magnesium 1.9. WBC 14.8, H and H 13.7 and 40.8, platelets 214, neutrophils 63%. Cultures negative to date. Assessment: A 54-year-old female with: 1.Acute on chronic respiratory failure with hypoxia and hypercapnia secondary to chronic obstructive pulmonary disease and pneumonia, now off mechanical ventilation, currently on 9 L via trach collar. Appreciate Pulmonology input. 2.Acute chronic obstructive pulmonary disease exacerbation, improving. Continue nebulizer treatment s. 3.Right lower lobe pneumonia. Patient is no longer on antibiotics. 4.Sepsis, improving. Cultures negative. 5.Hypotension, asymptomatic. We will continue to monitor. 6.Subglottic inflammation. Cultures negative. 7.Dysphonia, possible laryngeal mass and cancer. Pathology of peripheral report is positive. Connie nt will likely need radiation therapy. I spoke with Dr. Wilhelm who will see the patient and alisia t will likely also require PEG tube placement. She will not be able to tolerate p.o. with radiation. Consult with GI for possible PEG tube placement if patient agrees. 8.Severe protein-calorie malnutrition. Continue tube feeds. 9.Hypophosphatemia. We will replace and monitor. 10.Hyponatremia, corrected. 11.Deep venous thrombosis prophylaxis, Lovenox. SA/MODL Voice ID: [id number] Report ID: [id number]
[2019-09-09] MEDS: MORPHINE 2 MG/ML SYR IV PRN (16:36)
[2019-09-10] MEDS ORDERED: SODIUM CHLORIDE 0.9% 10ML INJ IV PRN (00:16)
[2019-09-10] MEDS ORDERED: PANTOPRAZOLE 40 MG INJ IVP ONE (00:16)
[2019-09-10] MEDS: LORazepam 2 MG/ML VIAL IV PRN ×2 (00:35→08:37)
[2019-09-10] MEDS: MORPHINE 2 MG/ML SYR IV PRN ×3 (05:05→18:06)
[2019-09-10 06:00] VITALS: BMI 16.5
[2019-09-10 06:44] LABS: Absolute Lymphocytes (CBC) 2.8 K/uL (0.7-4.9); Basophils % 0.2 % (0-1.3); Hematocrit 37.2 % (36.0-45.0); Lymphocytes % 21.7 % (15.3-44.8); MPV 8.5 fL (7.6-11.3); RBC Red Blood Cell Count 4.29 M/uL (3.86-4.86)
[2019-09-10 06:56] LABS: BUN Blood Urea Nitrogen 13 mg/dL (7-18); Bicarbonate 25 mmol/L (21-32); Glucose Level 91 mg/dL (74-106); Potassium 3.2 mmol/L (3.5-5.1); Sodium Level 135 mmol/L (136-145)
[2019-09-10 06:59] LABS: Protime INR 1.27
[2019-09-10] MEDS: Levofloxacin500mg IV 500 MG/100 ML BAG IV SCH (08:09)
[2019-09-10] MEDS: ENOXAPARIN 40 MG/0.4 ML SQ SCH (08:10)
[2019-09-10] MEDS ORDERED: POTASSIUM CL 40 MEQ in NA CHLORIDE 0.9% 500 ML IV ONE (08:30)
[2019-09-10] MEDS: PARoxetine HCl 10 MG TAB PO SCH (09:00)
--- NOTE | 2019-09-10 09:12 | RAD REPORT ---
EXAM DESCRIPTION: RAD - Chest Single View - 09/10/2019 5:55 am CLINICAL HISTORY: RO pnumonia Chest pain. COMPARISON: Chest Single View dated 09/09/2019; Abdomen 1 View (KUB) dated 09/06/2019; Abdomen 1 View (KUB) dated 09/06/2019; Chest Single View dated 09/05/2019 FINDINGS: Portable technique limits examination quality. The lungs are grossly clear of acute infiltrate. The heart is mildly prominent in size. No displaced fractures.Endotracheal tube tip is above the jane.
[2019-09-10] MEDS: ARFORMOTEROL TARTRATE 15 MCG/2 ML VIAL.NEB NEB SCH ×2 (09:48→20:55)
[2019-09-10 12:01] LABS: Platelet Estimate ADEQ
[2019-09-10] MEDS: D5 0.45 NS 1,000 ML IV SCH (13:11)
--- NOTE | 2019-09-10 13:53 | CON ---
Reason For Evaluation: For PEG placement. History Of Present Illness: Patient is a 54-year-old woman with a history of severe COPD, who was re cently admitted with respiratory failure, to be intubated and during this time, found to have a laryn geal mass which has been biopsied. Biopsy result pending, which was suspected to be a malignancy. H owever, we do not have a definitive biopsy results. Patient currently has a tracheostomy that was re cently done and in preparation for treatment, which may be radiation therapies, evaluation for PEG pl acement was requested. I have discussed this with the patient and the family. Allergies: NO KNOWN DRUG ALLERGIES. Home Medications: As in the chart. Past Medical History: laryngeal mass with suspected malignancy, COPD. Social History: Lifelong smoker. Denies alcohol or drugs. Review of Systems: GI: as in HPI. Respiratory: As in HPI, otherwise negative. Remainder of 10-point review of systems is negative. Physical Examination: Vital Signs: Temperature 97.1, respiratory rate 16, blood pressure 100/62, pulse 102. Head: Atraumatic, normocephalic. Neck: Tracheostomy visible. Chest: Bilateral air entry. Abdomen: Soft, nontender, nondistended. Bowel sounds present. Extremities: No pedal edema. Laboratory Data: Reviewed. She does have some leukocytosis. No other significant abnormality. Impression: A 54-year-old woman with suspected laryngeal cancer, may need radiation therapy. Jim saavedra, at this point, the patient has not had a swallow evaluation. Plan: I did have a detailed discussion with the patient. The patient actually says that she would l mackenzie to eat from mouth, and she does not feel she needs her feeding tube because she likes to eat, thi s is to be acceptable. Right now, we do not know she will definitively require a feeding tube. Afte r she has had a tracheostomy valve changed, swallow studies can be undertaken if she is able to swall ow. Then, the patient can decide if she wants feeding with a feeding tube or she can start the treat ment and then see if she is able to tolerate the treatment in regard to the feeding. In this case, Anibal Hastings will sign off the case at this time, can be followed as needed. We can also see her in the clinic as an outpatient. US/MODL Voice ID: [id number] Report ID: [id number]
--- NOTE | 2019-09-10 18:01 | PN ---
Date of Progress Note: 09/10/2019 Subjective: Patient is seen and examined. Chart reviewed and case discussed with RN and Dr. Brook roberts. Patient was not interested in PEG tube placement at this time. Also spoke with Dr. Wilhelm who will see the patient as an outpatient for radiation therapy. Medications: List reviewed. Physical Examination: Vital Signs: Temperature 97.7, heart rate 78, blood pressure 86/51, respirations 18, O2 of 98% on 6 L via trach collar. General: Awake, alert, in some mild respiratory distress, appears older than stated age. Ill-appear ing female, in mild respiratory distress, frail, cachectic. BMI 16. CV: S1, S2. Regular rate and rhythm. Peripheral pulses weak. Respiratory: Diminished breath sounds. No wheezing or stridor. Gastrointestinal: Abdomen is soft, nontender, nondistended. Positive bowel sounds. Extremities: No clubbing, cyanosis, or edema. Neurologic: Nonfocal. Neck: Trach collar in place. Laboratory Data: Sodium 135, potassium 3.2, chloride 103, CO2 of 25, BUN 13, creatinine 0.44, glucos e 91, calcium 8.7. WBC 12.7, H and H 12.4 and 37.2, platelets 231, neutrophils 62%. Chest x-ray bette ws lungs clear of acute infiltrate, heart is mildly prominent in size. No displaced fractures. Trac h collar above jane. Assessment: A 54-year-old female with: 1.Acute on chronic respiratory failure with hypoxia and hypercapnia secondary to chronic obstructive pulmonary disease and pneumonia, off mechanical ventilation, currently on 6 L via trach collar. Pul monology on board. 2.Acute chronic obstructive pulmonary disease exacerbation, improving. Continue nebulizer treatment s. 3.Right lower lobe pneumonia. Chest x-ray is clear. Her white blood cell count was continued to be elevated; however, now trending down. We will continue with prophylactic antibiotics for now. 4.Sepsis, resolved. 5.Hypotension, asymptomatic. Continue to monitor. Start on IV fluids. 6.Subglottic inflammation. Cultures negative. 7.Dysphonia with laryngeal mass. The child welfare social worker pathology specimen is positive for cancer. Patient will need outpatient radiation therapy, has been set up with Dr. Wilhelm. 8.Severe protein-calorie malnutrition. NG tube was accidentally became displaced was removed. The patient awaiting trach change. Therefore, a swallow study can be initiated. 9.Hypophosphatemia, replace and monitor. 10.Hyponatremia, corrected. 11.Deep venous thrombosis prophylaxis, Lovenox. Overall poor prognosis. SA/MODL Voice ID: [id number] Report ID: [id number]
[2019-09-10] MEDS ORDERED: NA CHLORIDE 0.9% 1,000 ML ONE (20:04)
[2019-09-10] MEDS: IPRATROPIUM BROM 0.5MG/2.5ML NEB PRN (20:50)
[2019-09-10] MEDS: KCL 20 MEQ/100 mL IVPB 20 MEQ/100 ML BAG IV SCH (22:57)
[2019-09-11] MEDS: D5 0.45 NS 1,000 ML IV SCH ×2 (02:00→09:00)
[2019-09-11] MEDS: KCL 20 MEQ/100 mL IVPB 20 MEQ/100 ML BAG IV SCH (02:00)
[2019-09-11] MEDS: ARFORMOTEROL TARTRATE 15 MCG/2 ML VIAL.NEB NEB SCH ×2 (07:54→20:10)
[2019-09-11 08:33] LABS: Absolute Lymphocytes (CBC) 1.8 K/uL (0.7-4.9); Basophils % 0.4 % (0-1.3); Hematocrit 34.7 % (36.0-45.0); MPV 8.1 fL (7.6-11.3); RBC Red Blood Cell Count 3.97 M/uL (3.86-4.86)
[2019-09-11 08:48] LABS: BUN Blood Urea Nitrogen 5 mg/dL (7-18); Bicarbonate 23 mmol/L (21-32); Glucose Level 94 mg/dL (74-106); Potassium 3.7 mmol/L (3.5-5.1); Sodium Level 137 mmol/L (136-145)
[2019-09-11] MEDS: Levofloxacin500mg IV 500 MG/100 ML BAG IV SCH (08:59)
[2019-09-11] MEDS: ENOXAPARIN 40 MG/0.4 ML SQ SCH (08:59)
[2019-09-11] MEDS: PARoxetine HCl 10 MG TAB PO SCH ×2 (09:00→09:05)
--- NOTE | 2019-09-11 10:37 | P.PN ---
Subjective Date of Service: 09/11/19 Primary Care Provider: unknown Chief Complaint: COPD exacerbation laryngeal cancer Patient is doing well on cuffless trach no new complaints able to speak Review of Systems General: Weakness Respiratory: Shortness of Breath Physical Examination - Vital Signs Temperature: 98.6 F Blood Pressure: 92/53 Pulse: 79 Respirations: 28 Pulse Ox (%): 94 - Physical Exam General: Alert, Oriented x3 Respiratory: Clear to auscultation bilaterally Cardiovascular: No edema, Regular rate/rhythm - Studies Medications List Reviewed: Yes Assessment & Plan - Problems (Diagnosis) (1) Laryngeal cancer Current Visit: Yes Status: Acute Plan: Patient is seen by a radiation oncology diffuse to PEG tube white count is declining continue with levofloxacin change to p.o. advance diet consider a Passy Kika valve patient able to speak with a finger on the trach now has a cuffless trach (2) COPD exacerbation Current Visit: No Status: Acute Plan: Doing well Physician Review: Patient Assessed, Agree with Above Assessment and Plan Physician Review Additional Text: Impression: Acute on chronic respiratory failure with hypoxia and hypercapnia secondary to COPD exacerbation likely with end-stage COPD complicated with right lower lobe pneumonia Hypotension likely from sedation Hyponatremia Dysphonia suspect laryngeal mass likely cancer Leukocytosis likely related to above Plan: -follow pulmonary fro weaning trial today - if failed trial , will place NGT and start tube feeding - wean vent as tolerated - will change IVF to d51/2ns with 30kcl now - replete k -follow phosphorous and replete -improved sodium level , c/w to follow - follow pending subglottic biopsy result - will hold off on ordering trach supplies for now until weaned off the vent -
[2019-09-11] MEDS: RANITIDINE 150 MG TABLET PO SCH ×2 (10:52→21:02)
--- NOTE | 2019-09-11 12:55 | PN ---
Date of Progress Note: 09/11/2019 History: Patient seen and examined, chart reviewed, and case discussed with RN and Dr. Lisa. He recommends speaking valve to be placed. We will start patient on liquid diet and advance as tolerated. Medications: List reviewed. Physical Examination: Vital Signs: Temperature 98.6, heart rate 79, blood pressure 92/53, respirations 28, O2 94% on 8 L via trach collar. CV: S1, S2. Regular rate and rhythm. Peripheral pulses weak. Respiratory: Minimal wheezing. Diminished breath sounds. No tachypnea or stridor. Gastrointestinal: Abdomen is soft, nontender, nondistended. Positive bowel sounds. Neck: Trach collar in place. Neurologic: Nonfocal. Laboratory Data: Sodium 137, potassium 3.7, chloride 107, CO2 23, BUN 5, creatinine 0.42, glucose 94, calcium 8.7. WBC 9.3, H and H 11.6 and 34.7, platelets 206, neutrophils 63%. Blood cultures negative. Assessment And Plan: 54-year-old female with; 1. Acute on chronic respiratory failure with hypoxia and hypercapnia secondary to chronic obstructive pulmonary disease pneumonia, now on supplemental oxygen via trach collar. Appreciate Pulmonology input. 2. Acute chronic obstructive pulmonary disease exacerbation, improved. Continue with nebulizer treatments. 3. Right lower lobe pneumonia. White count trending down. Continue with antibiotics. 4. Sepsis resolved. Cultures are negative. 5. Hypotension, asymptomatic. Patient did receive a bolus last night. Blood pressure has improved since then. 6. Subglottic inflammation. Cultures negative. 7. Dysphonia with laryngeal mass. 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 Patient will need radiation therapy, has already met with radiation oncologist. Patient has refused PEG tube placement at this time. She is open to following with GI as outpatient if necessary. 8. Severe protein-calorie malnutrition. We will start on diet. supplements 9. Hypophosphatemia, replace and monitor. 10. Hyponatremia, corrected. 11. Deep venous thrombosis prophylaxis with Lovenox. Disposition: Discharge once medically cleared and trach supplies are arranged. SA/MODL Voice ID: [id number] Report ID: [id number] [facility]
--- NOTE | 2019-09-11 14:50 | P.PN ---
Date of Service: 09/10/19 s/p trach/DL w bx now POD 5 and ready for first trach change. Patient has been weaned from vent and is on the floor. She is not able to phonate with finger occlusion and had significant back pressure when evaluated fro LEAD EMBEDDED SOFTWARE ENGINEER so no PMV is currently recommended. She also underwent bedside swallow with 6 cuffed trach and was not felt to be a good candidate to start PO but would likely benefit from MBS for further evaluation. Cleared by LEAD EMBEDDED SOFTWARE ENGINEER for ice chips only. Patient is not able to communicate effectively but indicates she does not have excessive pain at this time. 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 I will need to review with the radiologist now that a diagnosis is confirmed as to whether there is extension outside of the larynx and LAD. A PET/CT would be helpful in this and for evaluating for distant mets. The daughter shares that the patient is angry regarding the tracheotomy and I emphasized with her that the tracheotomy for needed to establish a safe airway to allow the patient to off sedation and able to participate in decision making regarding her condition. We discussed that presuming this is a stage 2 cancer, treatment is typically radiation w/wo chemotherapy. If there are enlarged lymph nodes, this would be a strong indication for chemotherapy. If there is extension outside of the larynx, this would represent a T4 lesion and total wide field laryngectomy with neck dissection and possible thyroidectomy would be indicated with post-operative radiation. If there are distant mets (lungs, etc) the chemo and radiation would likely be better than aggressive surgery. NAD, Alert. Coughing moderately thick pale yellow mucus. 6 CONTINUOUS PROCESS TANNER ROTARY DRUM Shiley in place with sutures and umbilical tie. After positioning supine, the trach is removed and replaced with a 4 CFS Shiley without difficulty. There was moderate bleeding and blood stained mucus following the trach exchanged. This blood mucus is normal for tonight but if it continues for more than 24 hours, further evaluation would be warranted. After exchange of the trach tube, the patient is asked to phonate with finger occlusion and there is still moderate back pressure. She is encouraged to continue practice with finger occlusion over the weekend. Discharge planning is somewhat complicated by patient's lack of Medicare B in terms of Home Health and DME supplies needed. Her daughter is an excellent resource due to nursing background by medical supplies and suction machine are still needed. In addition, she is already engaging with the [facility] to arrange follow up care in terms of her cancer dx. I will try to arrange an in-person meeting with the patient and her daughter on Friday.
[2019-09-11] MEDS ORDERED: RANITIDINE 150 MG TABLET PO SCH (21:00)
[2019-09-11] MEDS: MORPHINE 2 MG/ML SYR IV PRN (21:02)
[2019-09-11] MEDS: MELATONIN 3 MG TABLET PO PRN (22:34)
[2019-09-12 06:56] LABS: Absolute Lymphocytes (CBC) 2.2 K/uL (0.7-4.9); Basophils % 0.6 % (0-1.3); Hematocrit 34.8 % (36.0-45.0); Lymphocytes % 19.4 % (15.3-44.8); MPV 8.6 fL (7.6-11.3); RBC Red Blood Cell Count 4.03 M/uL (3.86-4.86)
[2019-09-12 07:08] LABS: BUN Blood Urea Nitrogen 4 mg/dL (7-18); Bicarbonate 23 mmol/L (21-32); Glucose Level 97 mg/dL (74-106); Potassium 3.3 mmol/L (3.5-5.1); Sodium Level 134 mmol/L (136-145)
[2019-09-12] MEDS: Levofloxacin500mg IV 500 MG/100 ML BAG IV SCH (07:57)
[2019-09-12] MEDS: RANITIDINE 150 MG TABLET PO SCH ×2 (07:57→21:43)
[2019-09-12] MEDS: PARoxetine HCl 10 MG TAB PO SCH (07:57)
[2019-09-12] MEDS: ENOXAPARIN 40 MG/0.4 ML SQ SCH (07:57)
[2019-09-12 08:28] LABS: Urine White Blood Cell Casts OK
[2019-09-12 08:29] LABS: Blood Morphology Comment NOT SEEN (NOT SEEN)
[2019-09-12 08:31] LABS: Platelet Estimate ADEQ
[2019-09-12] MEDS: ARFORMOTEROL TARTRATE 15 MCG/2 ML VIAL.NEB NEB SCH ×2 (09:00→20:50)
[2019-09-12] MEDS ORDERED: POTASSIUM 25 MEQ EFFERV TAB PO ONE ×2 (09:00→16:00)
[2019-09-12] MEDS: ALBUTEROL 2.5 MG/3 ML NEB SOL NEB PRN (09:00)
[2019-09-12] MEDS: IPRATROPIUM BROM 0.5MG/2.5ML NEB PRN ×2 (09:00→20:50)
[2019-09-12] MEDS: ALPRAZOLAM 0.25 MG TABLET PO PRN ×2 (10:40→21:43)
--- NOTE | 2019-09-12 11:59 | PN ---
Date of Progress Note: 09/12/2019 Subjective: Patient is seen and examined. Chart reviewed and case discussed with RN. Patient is do ing well. Passy-Kika has been placed, tolerating diet. Medications: List reviewed. Physical Examination: Vital Signs: Temperature 97.1, heart rate 86, blood pressure 111/60, respirations 18, O2 of 97% on 5 L via trach collar. General: Awake, alert, oriented x3. Appears older than stated age. Frail cachectic female. BMI 16 . CV: S1, S2. Regular rate and rhythm. Peripheral pulses weak bilaterally. Respiratory: Diminished breath sounds. Wheezing present. No use of accessory muscles. Gastrointestinal: Abdomen is soft, nontender, nondistended. Positive bowel sounds. No guarding or rigidity. Extremities: No clubbing, cyanosis, or edema. Neurologic: Nonfocal. Laboratory Data: Sodium 134, potassium 3.3, chloride 104, CO2 of 23, BUN 4, creatinine 0.46, glucose 97, calcium 8.7. WBC 11.2, H and H 11.7 and 34.8, platelets 204, neutrophils 57%. Cultures negativ e to date. Assessment: A 54-year-old female with: 1.Acute respiratory failure with hypoxia and hypercapnia, resolving, now off ventilator, currently o n 5 L via trach collar secondary to chronic obstructive pulmonary disease and pneumonia. 2.Acute chronic obstructive pulmonary disease exacerbation, improving. Continue with nebs. 3.Right lower lobe pneumonia. Continue antibiotics, improving. Cultures are negative. 4.Sepsis, resolved. No growth from cultures, afebrile. 5.Hypotension, asymptomatic, improved. 6.Generalized anxiety disorder, asking for anxiolytic. We will place on Xanax p.r.n. 7.Subglottic inflammation. Cultures negative. 8.Dysphonia with laryngeal mass. 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 Appr eciate Dr. Mathew's input. Patient is now status post tracheostomy, has been referred over to Radia t[facility] Oncology in the [facility]. 9.Severe protein-calorie malnutrition. Tolerating diet. Advance as tolerated. 10.Hypophosphatemia. We will replace and monitor. 11.Hyponatremia, corrected. 12.Deep venous thrombosis prophylaxis with Lovenox. Plan: We will need to arrange for supplies and DME as well as possible oxygen. Patient has lack of Medicare Part B, which will make this challenging. However, daughter is working with [facility] a nd Case Management. /HANS Voice ID: [id number] Report ID: [id number]
[2019-09-13] MEDS: TRAMADOL HCL 50 MG TAB PO PRN ×2 (00:09→14:34)
[2019-09-13] MEDS: ALBUTEROL 2.5 MG/3 ML NEB SOL NEB PRN (00:58)
[2019-09-13 04:51] LABS: BUN Blood Urea Nitrogen 4 mg/dL (7-18); Bicarbonate 27 mmol/L (21-32); Glucose Level 94 mg/dL (74-106); Potassium 3.4 mmol/L (3.5-5.1); Sodium Level 134 mmol/L (136-145)
[2019-09-13] MEDS: Levofloxacin500mg IV 500 MG/100 ML BAG IV SCH ×2 (08:25→09:00)
[2019-09-13] MEDS: ENOXAPARIN 40 MG/0.4 ML SQ SCH (08:26)
[2019-09-13] MEDS: PARoxetine HCl 10 MG TAB PO SCH ×2 (08:26→08:28)
[2019-09-13] MEDS: RANITIDINE 150 MG TABLET PO SCH ×2 (08:26→21:33)
[2019-09-13] MEDS: ARFORMOTEROL TARTRATE 15 MCG/2 ML VIAL.NEB NEB SCH ×2 (08:35→20:05)
[2019-09-13] MEDS ORDERED: POTASSIUM 25 MEQ EFFERV TAB PO ONE (09:00)
[2019-09-13] MEDS: ACETAMINOPHEN 500 MG TAB PO PRN ×2 (09:40→18:58)
[2019-09-13] MEDS: ALPRAZOLAM 0.25 MG TABLET PO PRN ×2 (09:40→21:34)
[2019-09-13] MEDS: levoFLOXacin 500 MG TAB PO SCH (09:40)
--- NOTE | 2019-09-13 19:20 | PN ---
Date of Progress Note: 09/13/2019 Subjective: Patient is seen and examined. Chart reviewed and case discussed with RN and Dr. Sury cherry. Patient is doing well with communication and feeding. Medication List: Reviewed. Physical Examination: Vital Signs: Temperature 97.2, heart rate 86, blood pressure 110/70, respirations 16, O2 of 98% on 5 L via trach collar. General: Awake, alert, oriented x3, ill-appearing female, appears older than stated age, frail, cach ectic. BMI 16. CV: S1, S2. Regular rate and rhythm. Respiratory: Diminished breath sounds. Minimal wheezing. No use of accessory muscles. Gastrointestinal: Abdomen is soft, nontender, nondistended. Positive bowel sounds. No guarding or rigidity. Extremities: No clubbing, cyanosis, or edema. Neck: Trach collar in place. Laboratory Data: Sodium 134, potassium 3.4, chloride 102, CO2 of 27, BUN 4, creatinine 0.39, glucose 94, calcium 8.5. WBC pending. Cultures, no growth to date. Assessment: A 54-year-old female with: 1.Acute respiratory failure with hypoxia, improved secondary to chronic obstructive pulmonary diseas e and pneumonia. Currently on 5 L via trach collar. 2.Acute chronic obstructive pulmonary disease exacerbation, doing well with nebulizer treatments and steroids. Continue supplemental oxygen. 3.Right lower lobe pneumonia, improved on oral antibiotics. Cultures negative to date. 4.Sepsis, resolved. No growth from cultures. Afebrile. 5.Acute hypotension, asymptomatic. We will continue to monitor. Has received 2 L of normal saline bolus. We will repeat bolus if continues to remain hypotensive. 6.Severe protein-calorie malnutrition. Tolerating diet. 7.Generalized anxiety disorder. Continue Xanax p.r.n. 8.Subglottic inflammation. Cultures negative. 9.Dysphonia with laryngeal mass positive for squamous cell carcinoma, T2. Follow up with radiation oncologist at the [facility]. Patient has already been set up with Dr. Wilhelm. 10.Hypophosphatemia, replace and monitor. 11.Hyponatremia, corrected. 12.Deep venous thrombosis prophylaxis with Lovenox. Plan: Pending discharge, DME and O2. ranch manager and sort line worker involved. SA/MODL Voice ID: [id number] Report ID: [id number]
[2019-09-13] MEDS: MELATONIN 3 MG TABLET PO PRN (21:34)
[2019-09-14] MEDS: TRAMADOL HCL 50 MG TAB PO PRN (03:25)
[2019-09-14 04:50] LABS: Basophils % 0.7 % (0-1.3); Hematocrit 32.6 % (36.0-45.0); Lymphocytes % 30.6 % (15.3-44.8); RBC Red Blood Cell Count 3.77 M/uL (3.86-4.86)
[2019-09-14 04:57] LABS: BUN Blood Urea Nitrogen 7 mg/dL (7-18); Bicarbonate 27 mmol/L (21-32); Glucose Level 91 mg/dL (74-106); Potassium 3.9 mmol/L (3.5-5.1); Sodium Level 134 mmol/L (136-145)
[2019-09-14] MEDS: ENOXAPARIN 40 MG/0.4 ML SQ SCH (07:58)
[2019-09-14] MEDS: levoFLOXacin 500 MG TAB PO SCH (07:59)
[2019-09-14] MEDS: RANITIDINE 150 MG TABLET PO SCH ×2 (07:59→20:12)
[2019-09-14] MEDS: ESCITALOPRAM 20 MG TAB PO SCH (07:59)
[2019-09-14] MEDS: ACETAMINOPHEN 500 MG TAB PO PRN (08:01)
[2019-09-14] MEDS: ARFORMOTEROL TARTRATE 15 MCG/2 ML VIAL.NEB NEB SCH ×2 (09:00→21:30)
[2019-09-14] MEDS ORDERED: POTASSIUM CL SA 10 MEQ TAB PO ONE (09:00)
[2019-09-14] MEDS: ALPRAZOLAM 0.25 MG TABLET PO PRN ×2 (10:52→22:34)
[2019-09-14] MEDS: HYDROCODONE/APAP 5/325 MG TAB PO PRN ×2 (11:08→20:12)
--- NOTE | 2019-09-14 13:42 | P.PN ---
Subjective Date of Service: 09/14/19 Primary Care Provider: unknown Chief Complaint: Respiratory failure The patient is currently phonating well when the tracheostomy is capped. She is tolerating mechanical soft diet. She is not requiring any oxygen. She ambulated without oxygen today. Physical Examination - Vital Signs Temperature: 97.5 F Blood Pressure: 114/61 Pulse: 84 Respirations: 15 Pulse Ox (%): 98 - Physical Exam General: Alert, In no apparent distress, Oriented x3 HEENT: Normocephalic, Mucous membr. moist/pink Neck: Supple, JVD not distended, Other (Tracheostomy) Respiratory: Clear to auscultation bilaterally, Normal air movement Cardiovascular: No edema, Regular rate/rhythm, Normal S1 S2 Gastrointestinal: Normal bowel sounds, Soft and benign, Non-distended, No tenderness Musculoskeletal: No swelling, No erythema Integumentary: No rashes Neurological: Normal gait, Normal speech, Normal strength at 5/5 x4 extr - Studies Medications List Reviewed: Yes Assessment And Plan - Current Problems (Diagnosis) (1) Acute respiratory failure with hypoxia Current Visit: Yes Status: Acute (2) Status post tracheostomy Current Visit: Yes Status: Acute (3) Laryngeal cancer Current Visit: Yes Status: Acute (4) Pneumonia Current Visit: Yes Status: Acute (5) Hypotension Current Visit: Yes Status: Acute - Plan Continue oral Levaquin. Bronchodilators Oxygen as needed Tracheostomy care. Patient is currently waiting for DME to be available for home then she can be discharged. Activity as tolerated. Continue mechanical soft diet. Physician Review: Patient Assessed, Agree with Above Assessment and Plan
[2019-09-14] MEDS: ENSURE ENLIVE 237 ML CAN PO SCH (20:13)
[2019-09-14] MEDS: MELATONIN 3 MG TABLET PO PRN (22:34)
[2019-09-15] MEDS: HYDROCODONE/APAP 5/325 MG TAB PO PRN ×4 (02:00→21:03)
[2019-09-15 04:52] LABS: BUN Blood Urea Nitrogen 6 mg/dL (7-18); Bicarbonate 24 mmol/L (21-32); Glucose Level 93 mg/dL (74-106); Magnesium 1.6 mg/dL (1.8-2.4); Potassium 3.1 mmol/L (3.5-5.1); Sodium Level 136 mmol/L (136-145)
[2019-09-15] MEDS ORDERED: POTASSIUM CL SA 10 MEQ TAB PO ONE (07:00)
[2019-09-15] MEDS ORDERED: MAGNESIUM SULFATE 1 gm IVPB 1 GM/100 ML BAG IV ONE (07:00)
[2019-09-15] MEDS: ARFORMOTEROL TARTRATE 15 MCG/2 ML VIAL.NEB NEB SCH ×2 (07:44→20:30)
[2019-09-15] MEDS: RANITIDINE 150 MG TABLET PO SCH ×2 (08:04→21:03)
[2019-09-15] MEDS: ESCITALOPRAM 20 MG TAB PO SCH (08:04)
[2019-09-15] MEDS: levoFLOXacin 500 MG TAB PO SCH (08:04)
[2019-09-15] MEDS: ENOXAPARIN 40 MG/0.4 ML SQ SCH (08:05)
[2019-09-15] MEDS: ENSURE ENLIVE 237 ML CAN PO SCH ×2 (08:05→21:00)
[2019-09-15] MEDS: ALPRAZOLAM 0.25 MG TABLET PO PRN ×2 (10:52→22:58)
--- NOTE | 2019-09-15 16:08 | P.PN ---
Subjective Date of Service: 09/15/19 Primary Care Provider: unknown Chief Complaint: Respiratory failure The patient has no complain today. She is tolerating mechanical soft diet. She ambulated around the hallway without oxygen. She does not qualify for home oxygen. Physical Examination - Vital Signs Temperature: 97.7 F Blood Pressure: 106/59 Pulse: 82 Respirations: 16 Pulse Ox (%): 95 - Physical Exam General: Alert, In no apparent distress, Oriented x3 HEENT: Mucous membr. moist/pink, Sclerae nonicteric Neck: Supple, JVD not distended, Other (Capped tracheostomy) Respiratory: Clear to auscultation bilaterally, Normal air movement Cardiovascular: No edema, Regular rate/rhythm, Normal S1 S2 Gastrointestinal: Normal bowel sounds, Soft and benign, No tenderness Musculoskeletal: No swelling Integumentary: No rashes Neurological: Normal speech, Normal strength at 5/5 x4 extr - Studies Medications List Reviewed: Yes Assessment And Plan - Current Problems (Diagnosis) (1) Acute respiratory failure with hypoxia Current Visit: Yes Status: Acute (2) Status post tracheostomy Current Visit: Yes Status: Acute (3) Laryngeal cancer Current Visit: Yes Status: Acute (4) Pneumonia Current Visit: Yes Status: Acute (5) Hypotension Current Visit: Yes Status: Acute - Plan Patient completed 7 days of oral Levaquin. Discontinue antibiotics. Continue Bronchodilators Tracheostomy care. Patient is currently waiting for DME-Tracheostomy kit to be available for home before discharge to home. Case management is working with the patient's daughter to procure the kit. Activity as tolerated. Continue mechanical soft diet. Physician Review: Patient Assessed, Agree with Above Assessment and Plan
[2019-09-15] MEDS: MELATONIN 3 MG TABLET PO PRN (21:07)
[2019-09-16 04:31] LABS: BUN Blood Urea Nitrogen 5 mg/dL (7-18); Bicarbonate 27 mmol/L (21-32); Glucose Level 93 mg/dL (74-106); Magnesium 1.7 mg/dL (1.8-2.4); Potassium 3.5 mmol/L (3.5-5.1); Sodium Level 136 mmol/L (136-145)
[2019-09-16] MEDS: HYDROCODONE/APAP 5/325 MG TAB PO PRN ×3 (04:38→19:05)
[2019-09-16] MEDS ORDERED: POTASSIUM 25 MEQ EFFERV TAB PO ONE (07:00)
[2019-09-16] MEDS ORDERED: MAGNESIUM SULFATE 1 gm IVPB 1 GM/100 ML BAG IV ONE (07:00)
[2019-09-16] MEDS: ARFORMOTEROL TARTRATE 15 MCG/2 ML VIAL.NEB NEB SCH ×2 (09:10→19:45)
[2019-09-16] MEDS: RANITIDINE 150 MG TABLET PO SCH ×2 (09:17→20:19)
[2019-09-16] MEDS: ESCITALOPRAM 20 MG TAB PO SCH (09:17)
[2019-09-16] MEDS: ENOXAPARIN 40 MG/0.4 ML SQ SCH (09:17)
[2019-09-16] MEDS: ENSURE ENLIVE 237 ML CAN PO SCH ×2 (09:18→20:18)
[2019-09-16] MEDS: ALPRAZOLAM 0.25 MG TABLET PO PRN (11:08)
--- NOTE | 2019-09-16 17:29 | P.PN ---
Subjective Date of Service: 09/16/19 Primary Care Provider: unknown Chief Complaint: Respiratory failure Patient has no complain today. She is tolerating mechanical soft diet. She paste ambulating without oxygen. Physical Examination - Vital Signs Temperature: 97.8 F Blood Pressure: 96/58 Pulse: 90 Respirations: 16 Pulse Ox (%): 94 - Physical Exam General: Alert, In no apparent distress, Oriented x3 HEENT: Mucous membr. moist/pink Neck: Supple, JVD not distended Respiratory: Clear to auscultation bilaterally, Normal air movement Cardiovascular: No edema, Regular rate/rhythm, Normal S1 S2 Gastrointestinal: Soft and benign, No tenderness Musculoskeletal: No swelling, No erythema - Studies Medications List Reviewed: Yes Assessment And Plan - Current Problems (Diagnosis) (1) Acute respiratory failure with hypoxia Current Visit: Yes Status: Acute (2) Status post tracheostomy Current Visit: Yes Status: Acute (3) Laryngeal cancer Current Visit: Yes Status: Acute (4) Pneumonia Current Visit: Yes Status: Acute (5) Hypotension Current Visit: Yes Status: Acute - Plan Patient completed 7 days of oral Levaquin. Continue Bronchodilators Tracheostomy care. Patient is currently waiting for DME-Tracheostomy kit to be available for home before discharge to home. Case management have been working with the patient's daughter to procure the kit. I am told that the kit will be available tomorrow morning. Activity as tolerated. Continue mechanical soft diet. Discharge in a.m. Physician Review: Patient Assessed, Agree with Above Assessment and Plan
[2019-09-16] MEDS: MELATONIN 3 MG TABLET PO PRN (20:18)
[2019-09-17] MEDS: ALPRAZOLAM 0.25 MG TABLET PO PRN ×2 (00:26→12:39)
[2019-09-17] MEDS: HYDROCODONE/APAP 5/325 MG TAB PO PRN ×3 (00:28→12:38)
[2019-09-17 05:55] LABS: BUN Blood Urea Nitrogen 6 mg/dL (7-18); Bicarbonate 27 mmol/L (21-32); Glucose Level 101 mg/dL (74-106); Magnesium 1.8 mg/dL (1.8-2.4); Potassium 3.4 mmol/L (3.5-5.1); Sodium Level 138 mmol/L (136-145)
[2019-09-17] MEDS ORDERED: POTASSIUM 25 MEQ EFFERV TAB PO ONE (06:04)
[2019-09-17] MEDS: ALBUTEROL 2.5 MG/3 ML NEB SOL NEB PRN (07:45)
[2019-09-17] MEDS: ARFORMOTEROL TARTRATE 15 MCG/2 ML VIAL.NEB NEB SCH (07:45)
[2019-09-17] MEDS: IPRATROPIUM BROM 0.5MG/2.5ML NEB PRN (07:45)
[2019-09-17] MEDS: ESCITALOPRAM 20 MG TAB PO SCH (08:33)
[2019-09-17] MEDS: RANITIDINE 150 MG TABLET PO SCH (08:33)
[2019-09-17] MEDS: ENOXAPARIN 40 MG/0.4 ML SQ SCH (08:33)
[2019-09-17] MEDS: ENSURE ENLIVE 237 ML CAN PO SCH (08:34)
[2019-09-17 10:52] VITALS: O2SAT 100
--- NOTE | 2019-09-17 12:16 | P.DS ---
Admission Date: 09/02/19 Discharge Date: 09/17/19 Primary Care Provider: unknown Disposition: ROUTINE DISCHARGE Discharge Condition: FAIR Reason for Admission: Respiratory failure - Problems (1) Acute respiratory failure with hypoxia Current Visit: Yes Status: Acute (2) Status post tracheostomy Current Visit: Yes Status: Acute (3) Laryngeal cancer Current Visit: Yes Status: Acute (4) Pneumonia Current Visit: Yes Status: Acute (5) Hypotension Current Visit: Yes Status: Acute Brief History of Present Illness: 54-year-old woman previously admitted for COPD and pneumonia presented again to the emergency department with worsening shortness of breath. Noted patient also has a history of dysphonia. Her chest x-ray in the ED reported possible right lower lobe pneumonia. Patient was in respiratory distress, and had respiratory acidosis with CO2 retention. She was dyspneic on BiPAP and subsequently got intubated in the ED. Per report, intubation was difficult due to a possible laryngeal mass. Hospital Course: She was admitted to the intensive care unit and aggressively managed with IV antibiotics, kept on mechanical ventilation, aggressive bronchodilator therapy and pulmonary toileting. She was seen and evaluated by pulmonology who assisted with treatment. She was also evaluated by Dr. Mathew who recommended laryngoscopy to evaluate the laryngeal mass. There was difficulty visualizing the laryngeal area and vocal cords while intubated. 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 CTA thorax was performed which was negative for pulmonary embolism but confirmed right mid lung pneumonia. Patient was eventually weaned off mechanical ventilation to high-flow oxygen and later weaned off oxygen. She is currently not requiring oxygen. She has been ambulating with good oxygen saturation and does not qualify for home oxygen. Patient has clinically improved with treatment. She is supposed to follow with oncology as an outpatient for further evaluation and staging for the laryngeal cancer. Family has been thought tracheostomy care. Vital Signs/Physical Exam: Temp Pulse Resp BP Pulse Ox 97.4 F 70 16 139/66 100 09/17/19 08:00 09/17/19 08:00 09/17/19 08:00 09/17/19 08:00 09/17/19 08:00 General: Alert, In no apparent distress, Oriented x3 HEENT: Mucous membr. moist/pink Neck: Supple, Other (Tracheostomy-capped) Respiratory: Clear to auscultation bilaterally, Normal air movement Cardiovascular: No edema, Regular rate/rhythm, Normal S1 S2 Capillary refill: <2 Seconds Gastrointestinal: Normal bowel sounds, Soft and benign, Non-distended, No tenderness Musculoskeletal: No swelling Integumentary: No rashes Neurological: Normal speech, Normal strength at 5/5 x4 extr Laboratory Data at Discharge: WBC 6.4 K/uL (4.3-10.9) D 09/14/19 04:04 Hgb 11.1 g/dL (12.0-15.0) L 09/14/19 04:04 Hct 32.6 % (36.0-45.0) L 09/14/19 04:04 Plt Count 211 K/uL (152-406) 09/14/19 04:04 PT 14.8 SECONDS (9.5-12.5) H 09/10/19 06:15 INR 1.27 09/10/19 06:15 APTT 33.6 SECONDS (24.3-36.9) 09/10/19 06:15 Sodium 138 mmol/L (136-145) 09/17/19 05:03 Potassium 3.4 mmol/L (3.5-5.1) L 09/17/19 05:03 BUN 6 mg/dL (7-18) L 09/17/19 05:03 Creatinine 0.48 mg/dL (0.55-1.3) L 09/17/19 05:03 Glucose 101 mg/dL (74-106) 09/17/19 05:03 Phosphorus 2.5 mg/dL (2.5-4.9) 09/06/19 04:35 Magnesium 1.8 mg/dL (1.8-2.4) 09/17/19 05:03 Total Bilirubin 0.4 mg/dL (0.2-1.0) 09/07/19 06:07 AST 22 U/L (15-37) 09/07/19 06:07 ALT 26 U/L (12-78) 09/07/19 06:07 Alkaline Phosphatase 48 U/L (45-117) 09/07/19 06:07 Home Medications: Fluticasone/Salmeterol [Advair 250-50 Diskus] 1 each IH BID #60 disk.w.dev 08/30 Ipratropium Neb [Atrovent*] 0.5 mg NEB [id number] #30 amp 08/30/19 Albuterol Neb [Proventil 0.083% Neb Soln] 2.5 mg NEB Q6HP PRN #120 amp 09/16/19 Ensure Enlive 237 ml PO BID #60 can 09/16/19 Escitalopram [Lexapro*] 10 mg PO DAILY #30 tab 09/16/19 Melatonin [Melatonin*] 3 mg PO BEDTIME PRN PRN #30 tablet 09/16/19 Ranitidine [Zantac*] 150 mg PO BID #60 tab 09/16/19 Tramadol HCl [Ultram] 50 mg PO TID PRN #20 tablet 09/17/19 New Medications: Albuterol Neb [Proventil 0.083% Neb Soln] 2.5 mg NEB Q6HP PRN #120 amp PRN Reason: Shortness Of Breath Ensure Enlive 237 ml PO BID #60 can Escitalopram [Lexapro*] 10 mg PO DAILY #30 tab Melatonin [Melatonin*] 3 mg PO BEDTIME PRN PRN #30 tablet PRN Reason: Insomnia Ranitidine [Zantac*] 150 mg PO BID #60 tab Tramadol HCl [Ultram] 50 mg PO TID PRN #20 tablet PRN Reason: Pain Diet: Regular (Mechanical soft) Activity: Ad jorge Followup: Jamie Bynum MD [Primary Care Provider] - (call to schedule follow up appointment ) Rhiannon Mathew MD [ACTIVE - CAN ADMIT] - (call to schedule appointment ) Carla Obando MD [ACTIVE - CAN ADMIT] - 1 Week (Go after discharge to schedule a appointment ) Time spent managing pt's care (in minutes): 45
[2019-09-17 12:43] VITALS: BP 107/54; TEMP 98
== END 2019-09-17 14:24 | disposition home health service (06) | DRG 4 ==
LOC: ER 09:15 → ERHOLD 11:28 → 3RD-ICU 13:58 → 4TH 09-08 11:05
PROVIDERS: ADMIT Family Medicine; ATTEND Internal Medicine
PROC: 5A1945Z Respiratory Ventilation, 24-96 Consecutive Hours (ICD-10-PCS; 2019-09-05)
PROC: 0CBV8ZX Excision of Left Vocal Cord, Via Natural or Artificial Opening Endoscopic, Diagnostic (ICD-10-PCS; 2019-09-05)
PROC: 5A09457 Assistance with Respiratory Ventilation, 24-96 Consecutive Hours, Continuous Positive Airway Pressure (ICD-10-PCS; 2019-09-05)
PROC: 0B110F4 Bypass Trachea to Cutaneous with Tracheostomy Device, Open Approach (ICD-10-PCS; principal; 2019-09-05 09:00)
DX: J96.21 Acute and chronic respiratory failure with hypoxia (principal); J18.9 Pneumonia, unspecified organism; E43 Unspecified severe protein-calorie malnutrition; J44.1 Chronic obstructive pulmonary disease with (acute) exacerbation; J44.0 Chronic obstructive pulmonary disease with (acute) lower respiratory infection; E87.1 Hypo-osmolality and hyponatremia; Z68.1 Body mass index [BMI] 19.9 or less, adult; J96.22 Acute and chronic respiratory failure with hypercapnia; C32.2 Malignant neoplasm of subglottis; C32.0 Malignant neoplasm of glottis; R49.0 Dysphonia; F17.210 Nicotine dependence, cigarettes, uncomplicated; H92.02 Otalgia, left ear; E87.6 Hypokalemia; E83.39 Other disorders of phosphorus metabolism; K14.0 Glossitis; I95.89 Other hypotension
CPT/HCPCS: 31500; 36415; 51702; 70490; 71045; 71275; 74018; 80048; 80053; 81003; 81025; 82805; 82947; 83605; 83735; 83880; 84100; 84132; 84145; 84484; 85025; 85049; 85610; 85730; 87040; 87070; 87205; 88305; 92507; 92523; 92526; 92610; 93005; 93306; 94002; 94003; 94660; 97112; 97116; 97161; 97530; 99291; C9113; J0171; J0330; J0692; J1170; J1265; J1650; J2250; J2270; J2704; J2920; J2930; J3010; J3475; J7030; J7040; J7060; J7605; J7799; Q9967